=== PATIENT | male | born 1965 | race Caucasian/White ===

== ENCOUNTER 2017-03-04 13:25 | Emergency (ER) | payer OTHER ==
[~2017-03-04] VITALS: Ht 188 cm; Wt 155.6 kg
[2017-03-04] MEDS ORDERED: TRAM-42 PO (14:23)
--- NOTE | 2017-03-04 14:24 | ED Lower Extremity ---
General Chief Complaint: Lower Extremity Stated Complaint: R KNEE INJ Source: patient Exam Limitations: no limitations History of Present Illness Time seen by provider: 14:21 Initial Comments To ER with pain to the right knee. This began 3-4 days ago when he was pushing a riding lawnmower that wouldn't start. He did not feel any popping sensation. That evening he had some pain behind the knee. Now has pain to the entire knee. Left knee has been replaced. He has been weightbearing since the event with only minimal increase in pain but his baseline pain is not responding to ibuprofen. Onset: last week Severity: moderate Pain/Injury Location: left knee Method of Injury: twisted Modifying Factors: Improves With Movement Constitutional: see HPI EENTM: see HPI Respiratory: no symptoms reported Cardiovascular: no symptoms reported Genitourinary: no symptoms reported Musculoskeletal: see HPI Past Zvfmvwp-Zxerbf-Emuscq Hx Patient Social History Recent Foreign Travel: No Contact w/Someone Who Travel: No Physical Exam Vital Signs Capillary Refill : General Appearance: WD/WN, no apparent distress HEENT: PERRL/EOMI, normal ENT inspection Neck: non-tender, full range of motion Respiratory: no respiratory distress, no accessory muscle use Gastrointestinal: non tender, soft Hips: bilateral hip non-tender, bilateral hip normal inspection, bilateral hip normal range of motion Legs: bilateral leg non-tender, bilateral leg normal inspection, bilateral leg normal range of motion Knees: bilateral knee non-tender, bilateral knee normal inspection, bilateral knee normal range of motion Ankles: bilateral ankle non-tender, bilateral ankle normal inspection, bilateral ankle normal range of motion Neurologic/Psychiatric: alert, normal mood/affect, oriented x 3 Departure Impression Impression: Primary Impression: Internal derangement of right knee Disposition: 01 HOME, SELF-CARE Condition: Stable Departure-Patient Inst. Decision time for Depature: 14:22 Referrals: YENNY DUFFY (PCP) Primary Care Physician AUTUMN SAPP MD Patient Instructions: Internal Derangement of the Knee Add. Discharge Instructions: 1. Rest, ice, crutches as needed. Scripts Tramadol HCl (Ultram) 50 Mg Tablet 50 MG PO Q6H Y for PAIN-MODERATE TO SEVERE, #30 TAB Prov: GAURAV FREDERICK APRN 03/04/17 Work/School Note: Work Release Form Date Seen in the Emergency Department: Mar 04, 2017 Return to Work: Mar 09, 2017 GAURAV FREDERICK APRN Mar 04, 2017 14:24
[2017-03-04 14:33] VITALS: BP 163/98
[2017-03-04] MEDS ORDERED: AMLODIPINE 5 MG (14:39)
[2017-03-04] MEDS ORDERED: MOBIC 15 MG (14:39)
[2017-03-04] MEDS ORDERED: LISINOPRIL HYDROCHLOROTHIAZIDE (14:39)
== END 2017-03-04 14:32 | disposition home or self-care (01) ==
LOC: EDUNIT# 13:25 → ER 13:28
DX: M23.91 Unspecified internal derangement of right knee (principal); Z96.652 Presence of left artificial knee joint
CPT/HCPCS: 99283

== ENCOUNTER 2019-03-13 10:07 | Outpatient (CLI) | payer OTHER ==
[~2019-03-13] VITALS: Ht 187.9 cm; Wt 169.1 kg
[~2019-03-13 10:07] MED LIST: AMLODIPINE 5 MG; LISINOPRIL HYDROCHLOROTHIAZIDE; MOBIC 15 MG; TRAM-42 PO
[2019-03-13 10:39] VITALS: BP 146/78
[2019-03-13 11:09] LABS: CALCIUM 9.8 MG/DL (8.5-10.1); CREATININE SERUM 1.42 MG/DL (0.60-1.30); POTASSIUM 3.9 MMOL/L (3.6-5.0)
[2019-03-13] MEDS ORDERED: LOSA100T57 PO (12:39)
[2019-03-13] MEDS ORDERED: CARV25TA PO (12:39)
[2019-03-13] MEDS ORDERED: AMLO10TA7 PO (12:39)
[2019-03-13] MEDS ORDERED: FURO40TA4 PO (12:39)
[2019-03-13] MEDS ORDERED: POTA-51 PO (12:39)
[2019-03-13] MEDS ORDERED: ALLO100T PO (12:39)
== END 2019-03-13 10:55 | disposition home or self-care (01) ==
LOC: PREOP 10:07
PROVIDERS: ATTEND Orthopaedic Surgery
DX: Z01.812 Encounter for preprocedural laboratory examination (principal); M93.262 Osteochondritis dissecans, left knee
CPT/HCPCS: 36415; 80048; 87081

== ENCOUNTER 2019-03-19 08:17 | Day surgery (SDC) | payer OTHER ==
--- NOTE | 2019-03-10 08:16 | HISTORY AND PHYSICAL ---
DATE OF SERVICE: ADMISSION HISTORY AND PHYSICAL This will be for outpatient surgery on 03/19/2019 for left knee arthroscopy with microfracture. HISTORY: The patient is a 54-year-old gentleman who has previously undergone left knee arthroscopy but has an osteochondral defect noted in his medial femoral condyle. He has undergone treatment with injections, physical therapy, activity modifications, and anti-inflammatories without relief. Radiographs reveal an osteochondral defect of his medial femoral condyle. Due to functional impairment and failure to improve with conservative measures, the patient elected to proceed with surgical intervention. REVIEW OF SYSTEMS: No chest pain, no shortness of breath, no dysuria. PAST MEDICAL HISTORY: Chronic kidney disease, hypertension. PAST SURGICAL HISTORY: Left knee. FAMILY HISTORY: Significant for ischemic heart disease. PRIMARY CARE PROVIDER: Dr. Addison. MEDICATIONS: Amlodipine, allopurinol, losartan, carvedilol, furosemide, potassium, calcium. ALLERGIES: No known drug allergies. SOCIAL HISTORY: The patient denies alcohol, tobacco use. PHYSICAL EXAMINATION: GENERAL: The patient is well developed, well nourished, in no acute distress. HEENT: Normocephalic, atraumatic. Pupils are equal, round and reactive to light. Oropharynx is clear. NECK: Supple, no lymphadenopathy. LUNGS: Clear to auscultation bilaterally. HEART: Regular rate and rhythm. ABDOMEN: Soft, nontender, nondistended. EXTREMITIES: Left knee demonstrates moderate effusion. He is tender along the medial femoral condyle and has pain medially with Randy's. Range of motion is 0/0/135. There is no varus valgus laxity. Negative anterior and posterior drawer. IMPRESSION: Left knee osteochondral defect, unresponsive to conservative measures. PLAN: Left knee arthroscopy with microfracture with medial femoral condyle. The risks, benefits, options, ramifications and recovery have been discussed at length with the patient. He understands and wishes to proceed. Job ID: [id number] DocumentID: [id number] Dictated Date: 03/06/2019 15:03:27 Manager Ed Date: 03/06/2019 15:50:26 Dictated By: AUTUMN SAPP MD
[2019-03-19] VITALS (11 sets, daily range): BP systolic 113–161; BP diastolic 61–97
[~2019-03-19] VITALS: Ht 187.9 cm; Wt 169.1 kg
[~2019-03-19 08:17] MED LIST changes: +ALLO100T PO; +AMLO10TA7 PO; +CARV25TA PO; +FURO40TA4 PO; +LOSA100T57 PO; +POTA-51 PO
[2019-03-19] MEDS ORDERED: LACTATED RINGERS 1,000 ML IV PRN (08:43)
[2019-03-19] MEDS ORDERED: ceFAZolin INJECTION 1,000 MG in WATER (STERILE) FOR INJECTION 10 ML IV ONE (08:45)
--- NOTE | 2019-03-19 09:11 | Progress Note-Pre Operative ---
Pre-Operative Progress Note H&P Reviewed The H&P was reviewed, patient examined and no changes noted. Date Seen by Provider: Mar 19, 2019 Time Seen by Provider: 09:11 Date H&P Reviewed: Mar 19, 2019 Time H&P Reviewed: 09:11 Pre-Operative Diagnosis: left knee osteochondritis dessistuarts AUTUMN SAPP MD Mar 19, 2019 09:11
--- NOTE | 2019-03-19 09:12 | Progress Note-Post Operative ---
Post-Operative Progess Note Surgeon (s)/Tower Helper (s) Surgeon AUTUMN SAPP MD Tower Helper: Elkin Kaur Pre-Operative Diagnosis left knee osteochondritis dessicans Post-Operative Diagnosis left knee osteochondritis dessicans of the medial femoral condyle, medial meniscus tear and chonromalacia of the patellas Procedure & Operative Findings Date of Procedure 03/19/19 Procedure Performed/Findings left knee arthroscopic microfracture of the medial femoral condyle, partial me dial meniscectomy and chondroplasty of the patella Anesthesia Type GETA Estimated Blood Loss Estimated blood loss (mL): minimal Specimens/Packing Specimens Removed none Packing: none AUTUMN SAPP MD Mar 19, 2019 09:12
[2019-03-19] MEDS ORDERED: morphine PF (DURAMORPH) 10 MG/10 ML AMP ONE (09:13)
[2019-03-19] MEDS ORDERED: BUPIVACAINE 0.25% 30 ML (SENSORCAINE) VIAL ONE (09:14)
[2019-03-19] MEDS ORDERED: HYDROcodone/APAP 7.5 MG/325 MG (LORTAB, LORCET PLUS) TABLET PO PRN (09:15)
[2019-03-19] MEDS ORDERED: LIDOCAINE PF 2% 5 ML (XYLOCAINE) VIAL ONE (09:37)
[2019-03-19] MEDS ORDERED: fentaNYL INJECTION 100 MCG/2 ML AMP ONE ×2 (09:37→10:22)
[2019-03-19] MEDS ORDERED: proPOfol 200 MG/20 ML (DIPRIVAN) VIAL IV ONE (09:37)
[2019-03-19] MEDS ORDERED: SEVOFLURANE (ULTANE) 15 ML INHAL SOLN ONE ×2 (09:37→10:34)
[2019-03-19] MEDS ORDERED: MIDAZOLAM 2 MG/2 ML (VERSED) VIAL ONE (09:37)
[2019-03-19] MEDS ORDERED: fentaNYL INJECTION 100 MCG/2 ML AMP IVP ONE (10:30)
[2019-03-19] MEDS ORDERED: MEPERIDINE (DEMEROL) INJ 50 MG/ML IVP ONE (10:30)
[2019-03-19] MEDS ORDERED: ONDANSETRON 4 MG/2 ML (SDV) Z0FRAN IVP PRN (10:30)
[2019-03-19] MEDS ORDERED: morphine INJ 10 MG/ML 1ML (SYR OR VIAL) IVP ONE (10:30)
[2019-03-19] MEDS ORDERED: ONDANSETRON 4 MG/2 ML (SDV) Z0FRAN IVP ONE (12:00)
[2019-03-19] MEDS ORDERED: HYDR-3816 PO (12:59)
--- NOTE | 2019-03-19 13:40 | Physical Therapy Ortho Eval ---
PT Orthopedic Evaluation Type of Surgery Knee Scope Prior Level of Function Current Living Status: Alone (has support from friends) Locomotion (Upon Admit): Independent Established Durable Medical Eq: Front Wheeled Walker, Straight Cane Subjective Subjective Agrees to PT. Reports he is somewhat nauseated. Entry Into Home: Stairs With Railing Steps Accessories: Railing Present Motor Control Motor Control: Motor Control WNL ROM ROM: WFL, except focal deficit (right knee decreased knee flexion) Strength Strength: WFL Transfer Transfers (B, C, W/C) (FIM): 4 (6 post eval / treat) Gait Gait Assistive Device: FWW Right Lower Extremity: Right Weight Bearing Status RLE: Weight Bearing/Tolerated Left Lower Extremity: Left Weight Bearing Status LLE: Full Weight Bearing Gait (FIM): 4 (6 post eval) Distance (FIM): 6=896-30 ft Gait Level of Assist: 4 (6 post eval) Summary/Comments pt is safe with gait on level surfaces as well as up/down a step with FWW. Treatment Rendered Treatment: Therapeutic Exercises, Gait Train, Step Train Exercise Instruction: Quad Sets, Straight Leg Raise, Heel Slides Assessment/Goals Goal Time Frame: 1 Visit Understands HEP: Yes Safe Ambulation: Yes Plan Treatment Plan: Discharge PT/Family Agrees to Plan: Yes Time Time In: 1240 Time Out: 1300 Total Billed Treatment Time: 20 Billed Treatment Time visit EVL 20 HEMANT DE LEON PT Mar 19, 2019 13:40
--- NOTE | 2019-03-19 14:11 | Anesthesia-General Post-Op ---
General Patient Condition Mental Status/LOC: Same as Preop Cardiovascular: Satisfactory Nausea/Vomiting: Absent Respiratory: Satisfactory Pain: Controlled Complications: Absent Post Op Complications Complications None Follow Up Care/Instructions Patient Instructions None needed. Anesthesia/Patient Condition Patient Condition Patient is doing well, no complaints, stable vital signs, no apparent adverse anesthesia problems. No complications reported per nursing. BRI PEREZ CRNA Mar 19, 2019 14:11
--- NOTE | 2019-03-19 19:03 | OPERATIVE REPORT ---
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 POSTOPERATIVE DIAGNOSES: 1. 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 2. Left knee medial meniscus tear. 3. Left knee chondromalacia of the patella. PROCEDURES: 1. Left knee arthroscopic microfracture of the medial femoral condyle. 2. Left knee arthroscopic partial medial meniscectomy. 3. Left knee arthroscopic chondroplasty of the patella. SURGEON: Pablo Sapp MD PHYSIOTHERAPY AIDE: Elkin Kaur, who assisted throughout the procedure and closed the incisions. ANESTHESIA: General endotracheal by Elkin Hendrix CRNA. TOURNIQUET TIME: Not applicable. ESTIMATED BLOOD LOSS: Minimal. DRAINS: None. COMPLICATIONS: None. POSTOPERATIVE PLAN: Routine arthroscopy protocol. The patient was transferred to the recovery room awake and in stable condition. STATEMENT OF MEDICAL NECESSITY: The patient is a 54-year-old gentleman with left knee pain, catching, locking and swelling. He had undergone arthroscopy in the past. He had also undergone treatment with injections, physical therapy, anti-inflammatories and rest without relief. Radiographs revealed an osteochondritis dissecans lesion of his medial femoral condyle and due to functional impairment and failure to improve with conservative measures, the patient elected to proceed with surgical intervention. Examination under anesthesia revealed range of motion of 0/0/125 with negative Alex, negative anterior and posterior drawer. No varus valgus laxity, negative pivot shift. ARTHROSCOPIC FINDINGS: The patella demonstrated grade II chondral flaps inferiorly in a 10 x 10 area. Trochlea demonstrated diffuse grade II chondral softening with no unstable chondral flaps. Medial and lateral gutters were clear. The lateral compartment demonstrated no meniscal or chondral pathology. The ACL and PCL were intact. The medial compartment demonstrated a full thickness osteochondritis lesion, which was hinged anteriorly approximately 12 x 12 mm in size. The posterior horn of the medial meniscus demonstrated a radial tear involving approximately 20% posterior horn. PROCEDURE: After risks and benefits of procedure were discussed and questions were answered, an informed consent was signed and placed on chart, the operative site was confirmed in the preoperative holding area initialed by the surgeon. The patient was transferred to the operating room. After adequate levels of general endotracheal anesthetic were obtained, a timeout was called, confirming the operative site. Examination under anesthesia was performed with above findings noted. The left lower extremity was prepped and draped in the usual sterile fashion. The knee joint was injected with 60 mL of fluid and standard inferior lateral portals placed with the arthroscope under direct visualization, inferior medial portal was created. The menisci and cruciates carefully probed with the above findings noted. The unstable chondral flaps on the patella were debrided with shaver back to a stable edge. Scope was redirected into the medial compartment and unstable medial meniscus tear was debrided with shaver back to a stable edge. The osteochondritis lesion was removed and this was a well-shouldered lesion. This was debrided back to a stable edge and a microfracture was performed with a curved awl with good blood return noted. The knee was copiously irrigated. Portal sites were closed with 4-0 nylon in simple interrupted fashion. Knee was injected with Duramorph. Port sites were infiltrated with plain Marcaine. A soft dressing was applied. The patient was transferred to the recovery room awake and in stable condition. Job ID: [id number] DocumentID: [id number] Dictated Date: 03/19/2019 10:47:48 Atmospheric Sciences Professor Date: 03/19/2019 19:02:11 Dictated By: PABLO SAPP MD
== END 2019-03-19 13:20 | disposition home or self-care (01) ==
LOC: SDC 08:17
PROVIDERS: ATTEND Orthopaedic Surgery
DX: S83.242A Other tear of medial meniscus, current injury, left knee, initial encounter (principal); M93.262 Osteochondritis dissecans, left knee; M22.42 Chondromalacia patellae, left knee; G47.33 Obstructive sleep apnea (adult) (pediatric); I12.9 Hypertensive chronic kidney disease with stage 1 through stage 4 chronic kidney disease, or unspecified chronic kidney disease; N18.9 Chronic kidney disease, unspecified; E66.01 Morbid (severe) obesity due to excess calories; Z68.42 Body mass index [BMI] 45.0-49.9, adult; Z79.899 Other long term (current) drug therapy

== ENCOUNTER 2021-02-21 10:06 | Emergency (ER) | payer OTHER ==
[~2021-02-21] VITALS: Ht 187 cm; Wt 188.2 kg
[~2021-02-21 10:06] MED LIST changes: +AMLO-251 PO; -AMLO10TA7 PO; +HYDR-34 PO
[2021-02-21] MEDS ORDERED: LIDOCAINE/EPI 1%-1:100,000 (XYLOCAINE) 20ML ONE (10:56)
[2021-02-21] MEDS ORDERED: LIDOCAINE/EPI 1%-1:100,000 (XYLOCAINE) 20ML INJ ONE (11:00)
[2021-02-21] MEDS ORDERED: DOXYCYCLINE 100 MG (VIBRAMYCIN) TABLET PO SCH (11:00)
[2021-02-21] MEDS ORDERED: ORPHENADRINE 60 MG/2 ML (NORFLEX) AMP (ED ONLY) IM ONE (11:00)
[2021-02-21] MEDS ORDERED: KETOROLAC 60 MG/2 ML VIAL IM ONE (11:00)
--- NOTE | 2021-02-21 11:14 | ED Back Pain ---
General Chief Complaint: Back Problems Stated Complaint: LOWER BACK PAIN Nursing Triage Note: PT PRESENTS TO ED WITH COMPLAINTS OF LOW BACK/TAIL BONE PAIN STARTING LAST NIGHT. PT DENIES ANY RECENT INJURY. Source of Information: Patient Exam Limitations: No Limitations (GAURAV FREDERICK APRN) History of Present Illness Date Seen by Provider: Feb 21, 2021 Time Seen by Provider: 10:50 Initial Comments To ER with low back/tailbone pain since last night no known injury though he was bouncing around in a tractor for a couple of hours. No fevers or chills. No history of this. Location: Coccyx, Lumbar Spine Timing/Duration: 1-2 Days Severity: Moderate Pain/Injury Location: Back Associated Symptoms: denies symptoms (GAURAV FREDERICK APRN) Allergies and Home Medications Allergies Coded Allergies: No Known Drug Allergies (Unverified , 03/04/17) Patient Home Medication List Home Medication List Reviewed: Yes (GAURAV FREDERICK APRN) Allopurinol (Allopurinol) 100 Mg Tablet, 100 MG PO BID, (Reported) Entered as Reported by: CHAN SMITH on 03/13/19 1239 Amlodipine Besylate (Amlodipine Besylate) 10 Mg Tablet, 10 MG PO DAILY, (Reported) Entered as Reported by: CHAN SMITH on 03/13/19 1239 Carvedilol (Carvedilol) 25 Mg Tablet, 25 MG PO BID, (Reported) Entered as Reported by: CHAN SMITH on 03/13/19 1239 Doxycycline Hyclate (Doxycycline Hyclate) 100 Mg Tablet, 100 MG PO BID Prescribed by: GAURAV FREDERICK on 02/21/21 1115 Furosemide (Furosemide) 40 Mg Tablet, 40 MG PO DAILY, (Reported) Entered as Reported by: CHAN SMITH on 03/13/19 1239 Hydrocodone Bit/Acetaminophen (HYDROcodone/APAP 7.5/325 TAB) 1 Each Tablet, 1 TAB PO Q4H Prescribed by: CORRINA LINDSEY on 03/19/19 1259 Hydrocodone/Acetaminophen (Hydrocodone-Acetamin 5-325 mg) 1 Each Tablet, 1 TAB PO Q4H PRN for PAIN-MODERATE (5-7) Prescribed by: GAURAV FREDERICK on 02/21/21 1115 Losartan Potassium (Losartan Potassium) 100 Mg Tablet, 100 MG PO DAILY, (Reported) Entered as Reported by: CHAN SMITH on 03/13/19 1239 Metronidazole (Metronidazole) 500 Mg Tablet, 500 MG PO TID Prescribed by: GAURAV FREDERICK on 02/21/21 1115 Potassium Chloride (Potassium Chloride) 20 Meq Tablet.er, 20 MEQ PO DAILY, (Reported) Entered as Reported by: CHAN SMITH on 03/13/19 1239 Review of Systems Constitutional: see HPI EENTM: see HPI Respiratory: no symptoms reported Cardiovascular: no symptoms reported Genitourinary: no symptoms reported Musculoskeletal: no symptoms reported Skin: see HPI Psychiatric/Neurological: No Symptoms Reported (GAURAV FREDERICK APRN) Past Sicqxib-Eealqs-Lrdcrj Hx Patient Social History Tobacco Use?: No Substance use?: No Alcohol Use?: No Pt feels they are or have been: No (GAURAV FREDERICK APRN) Immunizations Up To Date First/Initial COVID19 Vaccinat: YES Second COVID19 Vaccination Aki: YES (GAURAV FREDERICK APRN) Seasonal Allergies Seasonal Allergies: Yes (GAURAV FREDERICK APRN) Past Medical History Surgery/Hospitalization HX: L KNEE, HTN, GOUT Surgeries: Yes (left knee scope) Respiratory: Yes Sleep Apnea Currently Using CPAP: Yes Cardiac: Yes Hypertension Neurological: No Genitourinary: No Gastrointestinal: No Musculoskeletal: Yes (left knee) Arthritis Endocrine: No HEENT: No Cancer: No Psychosocial: No Integumentary: No Blood Disorders: No (GAURAV FREDERICK APRN) Physical Exam Vital Signs Vital Signs - First Documented 02/21/21 10:36 Temp 36.1 Pulse 78 Resp 16 B/P (MAP) 176/94 (121) Pulse Ox 97 (ISMAEL KAYE MD) Vital Signs Capillary Refill : Less Than 3 Seconds (GAURAV FREDERICK APRN) Height, Weight, BMI Height: 6'2.00" Weight: 343lbs. oz. 155.638593ji; 53.00 BMI Method:Stated General Appearance: No Apparent Distress, WD/WN, Obese HEENT: PERRL/EOMI, TMs Normal Neck: Full Range of Motion, Normal Inspection Cardiovascular: Regular Rate, Rhythm, Normal Peripheral Pulses Respiratory: No Accessory Muscle Use, No Respiratory Distress Gastrointestinal: Normal Bowel Sounds, Non Tender, Soft Extremity: Normal Capillary Refill, Normal Inspection Neurologic/Psychiatric: Alert, Oriented x3 Skin: Normal Color, Warm/Dry Lymphatic: Other (Skin of the low back appears normal. When spreading the skin to evaluate the superior aspect of the gluteal cleft there is indurated fluctuant tissue, bedside ultrasound shows a fluid collection. This was anesthetized with 1 mL of 1% lidocaine with epinephrine, incision made with 11 blade scalpel, moderate amount of foul-smelling purulent material expressed. There are no findings of cellulitis) (GAURAV FREDERICK APRN) Progress/Results/Core Measures Results/Orders Vital Signs/I&O 02/21/21 02/21/21 10:36 11:53 Temp 36.1 36.1 Pulse 78 80 Resp 16 16 B/P (MAP) 176/94 (121) 174/90 Pulse Ox 97 98 (ISMAEL KAYE MD) Blood Pressure Mean: 121 Departure Impression Primary Impression: Pilonidal abscess Disposition: HOME, SELF-CARE Condition: Stable Departure-Patient Inst. Decision time for Depature: 11:12 (GAURAV FREDERICK APRN) Referrals: LOUIE HATCH MD (PCP) Primary Care Physician Patient Instructions: Skin Abscess Add. Discharge Instructions: 1. This will continue to drain over the next few days, this is totally fine, change the gauze as needed to collect the drainage. Take the antibiotics as directed. Do not take alcohol while on the antibiotics. Pain medication as directed. Return to ER for any concerns such as increasing pain, fevers, or swelling to this area. It may need different antibiotics or re-lanced. All discharge instructions reviewed with patient and/or family. Voiced understanding. Scripts Hydrocodone/Acetaminophen (Hydrocodone-Acetamin 5-325 mg) 1 Each Tablet 1 TAB PO Q4H PRN for PAIN-MODERATE (5-7), #10 TAB Prov: GAURAV FREDERICK APRN 02/21/21 Metronidazole (Metronidazole) 500 Mg Tablet 500 MG PO TID, #21 TAB 0 Refills Prov: GAURAV FREDERICK APRN 02/21/21 Doxycycline Hyclate (Doxycycline Hyclate) 100 Mg Tablet 100 MG PO BID, #14 TAB 0 Refills Prov: GAURAV FREDERICK APRN 02/21/21 Work/School Note: Work Release Form Date Seen in the Emergency Department: Feb 21, 2021 Return to Work: Feb 27, 2021 ATTENDING PHYSICIAN NOTE: I was physically present as attending physician in the emergency department during the care of this patient, but I was not directly involved in the decision making or delivery of care for this patient. (ISMAEL KAYE MD) GAURAV FREDERICK APRN Feb 21, 2021 11:14 ISMAEL KAYE MD Feb 21, 2021 18:24
[2021-02-21] MEDS ORDERED: METR-145 PO (11:15)
[2021-02-21] MEDS ORDERED: DOXY100T2 PO (11:15)
[2021-02-21] MEDS ORDERED: ACHD5005 PO (11:15)
--- NOTE | 2021-02-21 11:37 | Diagnostic Imaging Report ---
EXAMINATION: Sacrum and coccyx radiographs, 3 views. COMPARISON: None. HISTORY: 56-year-old male, coccygeal pain. No known recent injury. FINDINGS: There is no identified cortical or aggressive bone destruction. There is no radiographically apparent displaced fracture. There is no identified radiopaque foreign body. There are mild disc degenerative changes at L4-L5 and L5-S1 with endplate degenerative changes and relatively well preserved disc heights. The sacroiliac joints are grossly unremarkable in appearance bilaterally. IMPRESSION: 1. Mild disc degenerative changes at L4-L5 and L5-S1. 2. Otherwise, unremarkable radiographs of the sacrum and coccyx. Dictated by: Dictated on workstation # [id number]
[2021-02-21 11:53] VITALS: BP 174/90
== END 2021-02-21 11:53 | disposition home or self-care (01) ==
LOC: EDUNIT# 10:06 → ER 10:08
DX: L05.01 Pilonidal cyst with abscess (principal)
CPT/HCPCS: 72220; 87070; 87077; 87186; 87205

== ENCOUNTER 2022-05-16 11:01 | Outpatient (CLI) | payer OTHER ==
[~2022-05-16] VITALS: Ht 188 cm; Wt 189.6 kg
[~2022-05-16 11:01] MED LIST changes: +ACHD5005 PO; +DOXY100T2 PO; +METR-145 PO
[2022-05-17] MEDS ORDERED: ERGO1250 PO (09:13)
[2022-05-17] MEDS ORDERED: LOSA50TA63 PO (09:13)
[2022-05-17] MEDS ORDERED: FURO20TA4 PO (09:13)
== END 2022-05-17 09:17 ==
LOC: PREOP 11:01
PROVIDERS: ATTEND Surgery
DX: Z01.818 Encounter for other preprocedural examination (principal); Z12.11 Encounter for screening for malignant neoplasm of colon

== ENCOUNTER 2022-05-21 09:16 | Inpatient (IN) | payer OTHER ==
[~2022-05-21] VITALS: Ht 187 cm; Wt 184.7 kg
[~2022-05-21 09:16] MED LIST changes: +ERGO1250 PO; +FURO20TA4 PO; +LOSA50TA63 PO
[2022-05-21 10:10] LABS: ALBUMIN 4.1 GM/DL (3.2-4.5); POTASSIUM 4.3 MMOL/L (3.6-5.0)
[2022-05-21 10:12] LABS: TOTAL PROTEIN 7.1 GM/DL (6.4-8.2)
[2022-05-21 10:14] LABS: BILIRUBIN,TOTAL 1.7 MG/DL (0.1-1.0)
[2022-05-21] MEDS ORDERED: hydrALAZINE (APESOLINE) 20 MG/ML VIAL IV ONE ×2 (10:15→11:30)
[2022-05-21 10:16] LABS: CREATININE SERUM 1.85 MG/DL (0.60-1.30)
[2022-05-21 10:19] LABS: MAGNESIUM 2.1 MG/DL (1.6-2.4)
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
--- NOTE | 2022-05-21 10:29 | Diagnostic Imaging Report ---
INDICATION: Head injury with headache and high blood pressure. Time of Exam: 10:31 AM No prior studies are available for comparison. FINDINGS: The heart size is normal. The pulmonary vascularity is unremarkable. The lungs are clear. No infiltrate, effusion or pneumothorax is detected. IMPRESSION: No acute cardiopulmonary process is detected. Dictated by: Dictated on workstation # [id number]
--- NOTE | 2022-05-21 10:30 | Diagnostic Imaging Report ---
PROCEDURE: CT head without contrast. TECHNIQUE: Multiple contiguous axial images were obtained through the brain without the use of intravenous contrast. Auto Exposure Controls were utilized during the CT exam to meet ALARA standards for radiation dose reduction. INDICATION: Headache. No prior studies are available for comparison. The ventricles and sulci are within normal limits. No sulcal effacement or midline shift is identified. No acute intra-axial or extra-axial hemorrhage is detected. There appears to be low attenuation in the periventricular regions consistent with chronic microvascular ischemia. Mucous retention cyst or polyp right maxillary sinus is noted. IMPRESSION: Chronic changes. No acute intracranial process is detected. Dictated by: Dictated on workstation # [id number]
[2022-05-21 11:13] LABS: BASOPHILS % (AUTO) 0 % (0-10); EOSINOPHILS % (AUTO) 0 % (0-10); MEAN CORPUSCULAR HGB CONC 35 g/dL (32-36); MEAN PLATELET VOLUME 11.8 fL (9.0-12.2)
[2022-05-21 11:15] LABS: HEMATOCRIT 37 % (40-54); HEMOGLOBIN 12.9 g/dL (13.3-17.7); LYMPHOCYTES # (AUTO) 1.9 10^3/uL (1.0-4.0); LYMPHOCYTES % (AUTO) 37 % (12-44); MEAN CORPUSCULAR HEMOGLOBIN 30 pg (25-34); MEAN CORPUSCULAR VOLUME 85 fL (80-99); MONOCYTES # (AUTO) 0.9 10^3/uL (0.0-1.0); MONOCYTES % (AUTO) 18 % (0-12); NEUTROPHILS # (AUTO) 2.1 10^3/uL (1.8-7.8); NEUTROPHILS % (AUTO) 40 % (42-75); PLATELET COUNT 108 10^3/uL (130-400); WHITE BLOOD COUNT 5.2 10^3/uL (4.3-11.0)
[2022-05-21] MEDS ORDERED: NITROGLYCERIN 2% OINT 1 GM UNIT DOSE PACKET TOP ONE (11:30)
[2022-05-21 11:36] LABS: BILIRUBIN,URINE NEGATIVE (NEGATIVE); CLARITY,URINE CLEAR; COLOR,URINE YELLOW; GLUCOSE, URINE (UA) NEGATIVE (NEGATIVE); KETONES,URINE NEGATIVE (NEGATIVE); LEUKOCYTE ESTERASE ,URINE NEGATIVE (NEGATIVE); NITRITE,URINE NEGATIVE (NEGATIVE); PROTEIN,URINE 3+ (NEGATIVE)
[2022-05-21 11:46] LABS: BACTERIA,URINE NEGATIVE /HPF; HYALINE CASTS, URINE RARE /LPF
[2022-05-21] MEDS ORDERED: LABETALOL HCL 20 MG/4 ML VIAL IV ONE (12:30)
[2022-05-21] MEDS ORDERED: amLODIPine 5 MG (NORVASC) TAB PO ONE (12:30)
[2022-05-21] MEDS ORDERED: fentaNYL INJ 100 MCG/2 ML AMP IVP ONE (14:00)
[2022-05-21] MEDS ORDERED: AMLO-251 PO (14:30)
[2022-05-21] MEDS ORDERED: NITROPRUSSIDE INJECTION 50 MG in D5W IV SOLUTION (EXCEL) 250 ML IV SCH (14:45)
[2022-05-21] MEDS ORDERED: ONDANSETRON 4 MG/2 ML (SDV) Z0FRAN IVP ONE (14:45)
[2022-05-21] MEDS ORDERED: morphine INJ 4 MG/ML 1 ML (VIAL/SYRINGE) IV PRN (16:00)
[2022-05-21] MEDS: NITROPRUSSIDE INJECTION 50 MG in D5W IV SOLUTION (EXCEL) 250 ML IV SCH (16:02)
[2022-05-21] MEDS ORDERED: ALPRAZolam 0.5 MG (XANAX) TAB PO PRN (16:15)
--- NOTE | 2022-05-21 17:53 | Tele-ICU Consult ---
History of Present Illness History of Present Illness Date Seen by Provider: May 21, 2022 Time Seen by Provider: 16:18 History of Present Illness (Tele-ICU Physician , consultation as per request of PCP Service provided via interactive audio and video telecommunications E-CARE system to a patient admitted to ICU bed in [facility] [place]. Available chart/ vitals / labs / Images reviewed H&P is from ER notes Patient's information available about PMH, Shx, Fhx allergy reviewed inEMR. ROS as per chart and RN report Now in ICU, hemodynamically stable Video assessment done using teleICU camera, rest of exam as per RN Discussed with RN. Hospital course: (05/21) 57y/o M admitted with unctontrolled hypertension. Nipride gtt. A/P HTN urgency/ with hypertensive WHALEN and DARLIN - h/p HTN - losartan was increased from 50 to 100 about 1 week ago - compliant - on presentation BP 180/111( MAP 137 - BP already decreased 10- 20% in ER using nitroprusside gtt - NEED TO MONITOR CLOSELY GIVEN RENAL FUNCTION -will plan 20% idrop n next 16 H ( next few hours target BP of <180/<120 mmHg , by tomorrow goal and <160/<110 mmHg - add trop to blood in lab - no EKG changes C/O HEADACHE X 6 WEEKS - CTH - no acute changes DARLIN due to above? / CKD - monitor for now COLEMAN - cont home cpap Anxiety - xanax prn Low PLT - etiology not clear now , monitor , no heparin product today Lines : prop , (Central Line Necessity Reviewed) Mac: void OG: Nutrition: po Analgesia: Anxiety/ delirium VTE Prophylaxis: scd Stress Ulcer Prophylaxis: na Plans in collaboration with bedside consultants and IM MDs. Discussed with RN to reach out if any questions or concerns A total of 31 minutes of critical care time was devoted to this patient today, required to treat and/or prevent further deterioration of critical care condition ( as above ) . I am remotely monitoring this patient from another state. I am unable to do the bedside exam, and history/physical and pertinent information is taken from other notes in the computer and bedside staff. . Allergies and Home Medications Allergies Coded Allergies: No Known Drug Allergies (Unverified , 03/04/17) Home Medications Allopurinol 100 Mg Tablet, 100 MG PO BID, (Reported) Amlodipine Besylate 10 Mg Tablet, 10 MG PO DAILY, (Reported) Amlodipine Besylate 10 Mg Tablet, 10 MG PO DAILY Prescribed by: ORLANDO PARRISH on 05/21/22 1430 Carvedilol 25 Mg Tablet, 25 MG PO BID, (Reported) Ergocalciferol (Vitamin D2) 1,250 Mcg (21550 Unit) Capsule, 1,250 MCG PO DAILY, (Reported) Furosemide 20 Mg Tablet, 20 MG PO DAILY, (Reported) Losartan Potassium 50 Mg Tablet, 50 MG PO DAILY, (Reported) Potassium Chloride 20 Meq Tablet.er, 20 MEQ PO DAILY, (Reported) Past Medical/Social/Family Hx Patient Social History Tobacco Use?: No Use of E-Cig and/or Vaping dev: No Substance use?: No Alcohol Use?: No Pt stated abuse/neglect: No Immunizations Up To Date Influenza Vaccine Up-to-Date: Yes; Up-to-Date First/Initial COVID19 Vaccinat: YES Second COVID19 Vaccination Aki: YES Current Status Advance Directives: No Communicates: Verbally Primary Language: Bulgarian Preferred Spoken Language: Bulgarian Is interpretation needed?: No Sensory deficits: Vision impairment Implanted or Applied Medical D: CPAP Review of Systems Constitutional: see HPI Focused Exam Possible Source: Other Height, Weight, BMI Height: 6'2.00" Weight: 343lbs. oz. 155.654206ve; 52.90 BMI Method:Stated Exam Exam Patient acknowledged, consented, and participated in this virtual visit which was conducted using real time audio/video Vital Signs Date Time Temp Pulse Resp B/P (MAP) Pulse Ox O2 Delivery O2 Flow Rate FiO2 05/21/22 17:00 81 9 156/90 (109) 93 Room Air 05/21/22 16:28 92 20 159/103 05/21/22 16:24 05/21/22 16:18 80 20 154/96 05/21/22 16:00 78 23 199/106 (141) 96 Room Air 05/21/22 16:00 36.5 05/21/22 15:59 73 20 189/117 05/21/22 15:42 36.8 67 18 188/91 98 Room Air 05/21/22 15:30 96 Room Air 05/21/22 15:06 67 18 188/91 05/21/22 13:10 63 20 174/97 (122) 98 Room Air 05/21/22 11:57 80 20 160/93 (115) 98 Room Air 05/21/22 10:59 70 18 178/100 (126) 99 Room Air 05/21/22 09:24 36.8 70 18 189/111 (137) 97 Room Air Height & Weight Height: 6'2.00" Weight: 343lbs. oz. 155.806894mq; 52.90 BMI Method:Stated General Appearance: Other Capillary Refill: Less Than 3 Seconds Results Lab Laboratory Tests 05/21/22 09:55 05/21/22 11:06 Assessment/Plan Assessment/Plan 1 KAT MINA MD May 21, 2022 17:53
[2022-05-21] MEDS ORDERED: LOSA100T57 PO (17:55)
[2022-05-21] MEDS ORDERED: NS IV 500 ML 500 ML IV PRN (18:45)
[2022-05-21 18:47] LABS: POTASSIUM 3.7 MMOL/L (3.6-5.0)
[2022-05-21 18:48] LABS: CALCIUM 8.8 MG/DL (8.5-10.1)
[2022-05-21 18:52] LABS: CREATININE SERUM 1.71 MG/DL (0.60-1.30)
[2022-05-21] MEDS ORDERED: CATHETER FLUSH 10 ML SYR IVP PRN (20:45)
[2022-05-21] MEDS: hydrALAZINE (APESOLINE) 20 MG/ML VIAL IV PRN (21:34)
[2022-05-21] MEDS: CATHETER FLUSH 10 ML SYR IVP SCH (21:35)
[2022-05-22 04:48] LABS: MONOCYTES % (AUTO) 22 % (0-12)
[2022-05-22 04:51] LABS: BASOPHILS % (AUTO) 0 % (0-10); EOSINOPHILS % (AUTO) 1 % (0-10); HEMATOCRIT 37 % (40-54); HEMOGLOBIN 12.8 g/dL (13.3-17.7); LYMPHOCYTES # (AUTO) 1.9 10^3/uL (1.0-4.0); LYMPHOCYTES % (AUTO) 30 % (12-44); MEAN CORPUSCULAR HEMOGLOBIN 30 pg (25-34); MEAN CORPUSCULAR HGB CONC 34 g/dL (32-36); MEAN CORPUSCULAR VOLUME 86 fL (80-99); MEAN PLATELET VOLUME 11.1 fL (9.0-12.2); MONOCYTES # (AUTO) 1.4 10^3/uL (0.0-1.0); NEUTROPHILS # (AUTO) 2.7 10^3/uL (1.8-7.8); NEUTROPHILS % (AUTO) 43 % (42-75); PLATELET COUNT 112 10^3/uL (130-400); WHITE BLOOD COUNT 6.2 10^3/uL (4.3-11.0)
[2022-05-22 05:11] LABS: POTASSIUM 3.6 MMOL/L (3.6-5.0)
[2022-05-22 05:17] LABS: CREATININE SERUM 1.78 MG/DL (0.60-1.30)
[2022-05-22] MEDS: POTASSIUM CL 10MEQ/50ML IVPB 50 ML IV SCH (05:25)
[2022-05-22] MEDS: KCL 20 MEQ TAB (K-DUR) PO SCH (05:25)
[2022-05-22 05:56] LABS: PHOSPHORUS 3.6 MG/DL (2.3-4.7)
[2022-05-22 05:58] LABS: MAGNESIUM 1.9 MG/DL (1.6-2.4)
[2022-05-22] MEDS: CATHETER FLUSH 10 ML SYR IVP SCH ×3 (06:10→21:18)
[2022-05-22] MEDS: MAGNESIUM 1 GM/100 ML IVPB 100 ML IV SCH (06:10)
[2022-05-22 06:48] LABS: ATYPICAL LYMPHOCYTES 3 %; LYMPHOCYTES % (MANUAL) 37 %; MONOCYTES % (MANUAL) 18 %; NEUTROPHILS % (MANUAL) 42 %; RBC MORPH NORMAL
[2022-05-22] MEDS: hydrALAZINE (APESOLINE) 20 MG/ML VIAL IV PRN ×2 (07:33→14:29)
[2022-05-22] MEDS: ONDANSETRON 4 MG/2 ML (SDV) Z0FRAN IV PRN ×3 (08:14→21:17)
[2022-05-22] MEDS: NITROPRUSSIDE INJECTION 50 MG in D5W IV SOLUTION (EXCEL) 250 ML IV SCH (08:17)
[2022-05-22] MEDS ORDERED: KCL 20 MEQ TAB (K-DUR) PO ONE (09:00)
[2022-05-22] MEDS ORDERED: amLODIPine 5 MG (NORVASC) TAB PO SCH (09:00)
[2022-05-22] MEDS ORDERED: amLODIPine 10 MG (NORVASC) TAB PO NR (10:30)
[2022-05-22] MEDS ORDERED: acetaZOLAMIDE INJ 500 MG/5 ML (DIAMOX) VIAL IV NR (10:30)
--- NOTE | 2022-05-22 10:41 | Tele-ICU Progress Note ---
Subjective Date Seen by a Provider: May 22, 2022 Time Seen by a Provider: 10:41 Subjective/Events-last exam Service provided via interactive audio and video telecommunications E-CARE system to a patient admitted to ICU bed in [facility]. Patient is seen today due to persistent need of ICU care Available chart/ vitals / labs / Images reviewed Video assessment done using teleICU camera, rest of exam as per RN Discussed with RN Events overnight : Afebrile hemodynamically stable Respiratory - I/O = Drips: Pressors- no Hospital course: (05/21) 57y/o M admitted with unctontrolled hypertension. Nipride gtt. A/P HTN urgency/ with hypertensive WHALEN and DARLIN ( previous w/up unknown ) - h/p HTN - losartan was increased from 50 to 100 about 1 week ago - compliant - on presentation BP 180/111( MAP 137 - off nitroprusside gtt last night , back on oit this AM NEED TO MONITOR C LOSELY GIVEN RENAL FUNCTION -- resuming po meds Elev trop to blood in lab - no EKG changes - start ASA , as per cards C/O HEADACHE X 6 WEEKS - CTH - no acute changes DARLIN due to above? / CKD - not improved with control BP - as per RN , bilat edema - gentle diuresis COLEMAN - cont home cpap Anxiety - xanax prn Low PLT - etiology not clear now ,stable , monitor Lines : prop , (Central Line Necessity Reviewed) Mac: void OG: Nutrition: po Analgesia: Anxiety/ delirium VTE Prophylaxis: scd Stress Ulcer Prophylaxis: na Plans in collaboration with bedside consultants and IM MDs. Discussed with RN to reach out if any questions or concerns A total of 31 minutes of critical care time was devoted to this patient today, required to treat and/or prevent further deterioration of critical care condition ( as above ) . I am remotely monitoring this patient from another state. I am unable to do the bedside exam, and history/physical and pertinent information is taken from other notes in the computer and bedside staff. Sepsis Event Evaluation Height, Weight, BMI Height: 6'2.00" Weight: 343lbs. oz. 155.969426xh; 52.84 BMI Method:Stated Exam Exam Patient acknowledged, consented, and participated in this virtual visit which was conducted using real time audio/video Vital Signs Date Time Temp Pulse Resp B/P (MAP) Pulse Ox O2 Delivery O2 Flow Rate FiO2 05/22/22 09:00 80 14 167/85 (112) 92 Room Air 05/22/22 08:17 84 12 192/93 05/22/22 08:00 92 13 164/94 (117) 95 Room Air 05/22/22 07:42 36.1 Room Air 05/22/22 07:40 97 NIV CPAP 05/22/22 07:00 86 18 180/96 (124) 96 Room Air 05/22/22 07:00 86 05/22/22 06:00 85 29 175/112 (135) 96 NIV CPAP 05/22/22 05:00 85 29 173/104 (117) 95 NIV CPAP 05/22/22 04:00 94 18 189/102 (128) 98 NIV CPAP 05/22/22 04:00 97 NIV CPAP 05/22/22 03:30 82 19 176/99 (121) 96 NIV CPAP 05/22/22 03:11 36.5 NIV CPAP 05/22/22 03:03 93 12 189/104 (130) 97 NIV CPAP 05/22/22 02:00 89 20 153/90 (113) 93 NIV CPAP 05/22/22 01:00 94 05/22/22 01:00 94 18 143/82 (100) 94 NIV CPAP 05/22/22 00:00 85 20 147/95 (112) 96 NIV CPAP 05/21/22 23:48 36.7 NIV CPAP 05/21/22 23:46 98 NIV CPAP 05/21/22 23:00 89 18 158/84 (108) 96 NIV CPAP 05/21/22 22:47 NIV CPAP 05/21/22 22:39 82 14 179/111 (133) 97 Room Air 05/21/22 21:00 77 172/90 (111) 96 Room Air 05/21/22 20:45 74 37 166/91 (114) 94 Room Air 05/21/22 20:30 77 168/90 (111) 96 Room Air 05/21/22 20:00 36.4 05/21/22 20:00 97 Room Air 05/21/22 19:59 79 32 187/97 (123) 96 Room Air 05/21/22 19:56 77 27 184/90 (120) 95 Room Air 05/21/22 19:30 68 174/94 (106) 94 Room Air 05/21/22 19:15 67 21 170/89 (115) 95 Room Air 05/21/22 19:04 84 23 111/71 05/21/22 19:00 Room Air 05/21/22 19:00 85 15 111/71 (89) 93 Room Air 05/21/22 19:00 85 05/21/22 18:48 84 20 128/64 05/21/22 18:00 93 147/84 (99) 93 Room Air 05/21/22 17:51 84 20 169/87 05/21/22 17:00 81 9 156/90 (109) 93 Room Air 05/21/22 16:28 92 20 159/103 05/21/22 16:24 05/21/22 16:18 80 20 154/96 05/21/22 16:00 78 23 199/106 (141) 96 Room Air 05/21/22 16:00 36.5 05/21/22 15:59 73 20 189/117 05/21/22 15:42 36.8 67 18 188/91 98 Room Air 05/21/22 15:30 96 Room Air 05/21/22 15:06 67 18 188/91 05/21/22 13:10 63 20 174/97 (122) 98 Room Air 05/21/22 11:57 80 20 160/93 (115) 98 Room Air 05/21/22 10:59 70 18 178/100 (126) 99 Room Air I & O 05/22/22 07:00 Intake Total 600 ml Output Total 1525 ml Balance -925 ml Height & Weight Height: 6'2.00" Weight: 343lbs. oz. 155.481210yr; 52.84 BMI Method:Stated General Appearance: Other Capillary Refill: Less Than 3 Seconds Results Lab Laboratory Tests 05/21/22 09:55 05/21/22 11:06 05/21/22 18:33 05/22/22 04:08 Assessment/Plan Assessment/Plan 1 AKT MINA MD May 22, 2022 10:41
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
[2022-05-22] MEDS ORDERED: meTOprolol SUCCINATE 100 MG (TOPROL XL) TAB PO NR (13:30)
--- NOTE | 2022-05-22 15:44 | Diagnostic Imaging Report ---
EXAMINATION: Renal artery stenosis. COMPARISON: None. TECHNIQUE: Grayscale, color Doppler, and spectral Doppler ultrasound was performed of the bilateral kidneys and renal arteries. FINDINGS: The right kidney measures 12.9 cm in length. There is no hydronephrosis. No renal masses or shadowing calculi are seen. The left kidney measures 11.2 cm in length. There is no hydronephrosis. No masses or shadowing calculi are seen. No free fluid is identified. Velocities and flow measurements of the aorta and of the bilateral renal arteries are not possible due to body habitus and bowel gas. IMPRESSION: 1. Markedly suboptimal exam. No abnormality is seen in the kidneys, although Doppler imaging of the renal arteries could not be performed. Dictated by: Dictated on workstation # [id number]
--- NOTE | 2022-05-22 15:46 | Diagnostic Imaging Report ---
PROCEDURE: US Abdomen, limited. TECHNIQUE: Multiple realtime grayscale images were obtained over the abdomen in various projections. INDICATION: Thrombocytopenia. COMPARISON: None. FINDINGS: The pancreas is not seen due to bowel gas. The aorta is not seen due to bowel gas. The visible portions of the IVC appear normal. The liver demonstrates mildly increased echogenicity. The liver measures 22 cm in length. No focal lesions are seen. The main portal vein is not well seen. This is likely due to body habitus. The common bile duct is not seen. The gallbladder wall does not appear thickened. No stones are seen in the gallbladder. Sonographic Fuller's sign is negative. No free fluid is seen. The right kidney measures 13.5 cm in length. There is no hydronephrosis. IMPRESSION: 1. Hepatomegaly and hepatic steatosis. No acute abnormalities seen in the gallbladder. 2. Suboptimal examination due to bowel gas and body habitus. Dictated by: Dictated on workstation # [id number]
--- NOTE | 2022-05-22 17:23 | Consultation-Cardiology ---
HPI-Cardiology Cardiology Consultation: Date of Consultation 05/22/22 Time Seen by a Provider: 13:15 Date of Admission Attending Physician Kayode Mittal - [facility] Admitting Physician Admitting Physician: Sam Vega MD Attending Physician: Laura Chowdhury DO Consulting Physician RICK TORRES MD, MA, FACP, FACC, [facility], [facility]S Physician requesting consult: Dr Chowdhury HPI: Chief Complaint: Reason for Card consult: Elevated troponin 57 yo man presented with headache and prosper-orbital pressure feeling and found to have markedly elevated bp and admitted by Dr Chowdhury to her service. He has been treated with iv nitroprusside. Symptoms are better. He denies any chest pain. Also denies palp or syncope or shortness of breath. Chronic, mild to mod, intermittent ankle swelling. No n/v/d. Is know to have COLEMAN and treats it with CPAP Review of Systems-Cardiology Review of Systems Constitutional: malaise, tiredness; No weight loss, No weight gain Eyes: No vision change Ears/Nose/Throat: As described under HPI, ear discharge; No nasal drainage, No recent hearing loss, No ulcerations Respiratory: As described under HPI Cardiovascular: As described under HPI Gastrointestinal: As described under HPI Genitourinary: No dysuria, No urine frequency changes Musculoskeletal: No back pain Skin: No rash, No ulcerations Psychiatric/Neurological: No seizure, No focal weakness, No syncope Hematologic: No bleeding abnormalities WKH-Sjweac-Lehmiv Hx Patient Social History 2nd Hand Smoke Exposure: No Have you traveled recently?: No Alcohol Use?: No Pt feels they are or have been: No Immunizations Up To Date Date of Influenza Vaccine: Dec 03, 2021 Past Medical History PMH As described under Assessment. Family Medical History Family Medical History: He does not report fam h/o early CAD or SCD Allergies and Home Medications Allergies Coded Allergies: No Known Drug Allergies (Unverified , 03/04/17) Patient Home Medication List Home Medication List Reviewed: Yes Allopurinol (Allopurinol) 100 Mg Tablet, 100 MG PO BID, (Reported) Entered as Reported by: CHAN SMITH on 03/13/19 1239 Last Action: Reviewed Carvedilol (Carvedilol) 25 Mg Tablet, 25 MG PO BID, (Reported) Entered as Reported by: CHAN SMITH on 03/13/19 1239 Last Action: Reviewed Ergocalciferol (Vitamin D2) (Vitamin D2) 1,250 Mcg (71083 Unit) Capsule, 1,250 MCG PO WEEK, (Reported) Entered as Reported by: JAMEY MEDINA on 05/17/22912 Last Action: Reviewed Losartan Potassium (Losartan Potassium) 100 Mg Tablet, 100 MG PO DAILY, (Reported) Entered as Reported by: MCKENZIE BRANDON on 05/21/22 175 Last Action: Reviewed Discontinued Medications Amlodipine Besylate (Amlodipine Besylate) 10 Mg Tablet, 10 MG PO DAILY, (Reported) Discontinued Reason: No Longer Taking Entered as Reported by: CHAN SMITH on 03/13/19 1239 Last Action: Discontinued Amlodipine Besylate (Amlodipine Besylate) 10 Mg Tablet, 10 MG PO DAILY Discontinued Reason: No Longer Taking Prescribed by: ORLANDO PARRISH on 05/21/22 1430 Last Action: Discontinued Doxycycline Hyclate (Doxycycline Hyclate) 100 Mg Tablet, 100 MG PO BID Discontinued Reason: No Longer Taking Prescribed by: GAURAV FREDERICK on 02/21/21 1115 Furosemide (Furosemide) 40 Mg Tablet, 40 MG PO DAILY, (Reported) Discontinued Reason: No Longer Taking Entered as Reported by: CHAN SMITH on 03/13/19 1239 Furosemide (Furosemide) 20 Mg Tablet, 20 MG PO DAILY, (Reported) Discontinued Reason: No Longer Taking Entered as Reported by: JAMEY MEDINA on 05/17/22912 Last Action: Discontinued Hydrocodone Bit/Acetaminophen (HYDROcodone/APAP 7.5/325 TAB) 1 Each Tablet, 1 TAB PO Q4H Discontinued Reason: No Longer Taking Prescribed by: CORRINA LINDSEY on 03/19/19 1259 Hydrocodone/Acetaminophen (Hydrocodone-Acetamin 5-325 mg) 1 Each Tablet, 1 TAB PO Q4H PRN for PAIN-MODERATE (5-7) Discontinued Reason: No Longer Taking Prescribed by: GAURAV FREDERICK on 02/21/21 1115 Losartan Potassium (Losartan Potassium) 100 Mg Tablet, 100 MG PO DAILY, (Reported) Discontinued Reason: No Longer Taking Entered as Reported by: CHAN SMITH on 03/13/19 1239 Losartan Potassium (Losartan Potassium) 50 Mg Tablet, 50 MG PO DAILY, (Reported) Discontinued Reason: No Longer Taking Entered as Reported by: JAMEY MEDINA on 05/17/22 0913 Last Action: Discontinued Metronidazole (Metronidazole) 500 Mg Tablet, 500 MG PO TID Discontinued Reason: No Longer Taking Prescribed by: GAURAV FREDERICK on 02/21/21 1115 Potassium Chloride (Potassium Chloride) 20 Meq Tablet.er, 20 MEQ PO DAILY, (Reported) Discontinued Reason: No Longer Taking Entered as Reported by: CHAN SMITH on 03/13/19 1239 Last Action: Discontinued Physical Exam-Cardiology Physical Exam Vital Signs/I&O 05/22/22 05/22/22 05/22/22 05/22/22 06:00 07:00 07:00 07:40 Pulse 85 86 86 Resp 29 18 B/P (MAP) 175/112 (135) 180/96 (124) Pulse Ox 96 96 97 O2 Delivery NIV CPAP Room Air NIV CPAP 05/22/22 05/22/22 05/22/22 05/22/22 07:42 08:00 08:17 09:00 Temp 36.1 Pulse 92 84 80 Resp 13 12 14 B/P (MAP) 164/94 (117) 192/93 167/85 (112) Pulse Ox 95 92 O2 Delivery Room Air Room Air Room Air 05/22/22 05/22/22 05/22/22 05/22/22 10:00 11:00 11:37 11:40 Temp 36.3 Pulse 87 77 Resp 33 13 B/P (MAP) 161/91 (114) 169/98 (121) Pulse Ox 94 95 97 O2 Delivery Room Air Room Air NIV CPAP 05/22/22 05/22/22 05/22/22 05/22/22 12:00 12:55 13:00 14:00 Pulse 80 77 80 84 Resp 18 19 11 B/P (MAP) 154/84 (107) 183/108 (133) 164/88 (113) Pulse Ox 95 95 95 O2 Delivery Room Air Room Air Room Air 05/22/22 05/22/22 05/22/22 15:00 15:16 16:00 Temp 36.6 Pulse 86 85 Resp 13 20 B/P (MAP) 134/80 (98) 142/79 (100) Pulse Ox 96 94 O2 Delivery Room Air Room Air 05/22/22 00:00 Intake Total 350 ml Output Total 275 ml Balance 75 ml Capillary Refill : Less Than 3 Seconds Constitutional: AAO x 3, well-developed, well-nourished, other (obese) HEENT: PERRL, EOMI, hearing is well preserved Neck: carotid pulses are 2 + bilaterally, with good upstrokes Respiratory: No accessory muscle use; chest expansion is symmetric, chest is bilaterally symmetric, other (fair to good, bilateral air entry) Cardiovascular: regular rate-rhythm, S1 and S2, systolic murmur (soft ARIAN at card base) Gastrointestinal: No tender; soft; No guarding, No rebound; audible bowel sounds Extremities: No clubbing, No cyanosis, No significant edema Neurologic/Psychiatric: oriented x 3, other (moves all limbs equally) Skin: No rash on exposed areas, No ulcerations on exposed areas Data Review Labs Laboratory Tests 05/21/22 18:33: Sodium Level 143, Potassium Level 3.7, Chloride Level 111H, Carbon Dioxide Level 19L, Anion Gap 13, Blood Urea Nitrogen 25H, Creatinine 1.71H, Estimat Glomerular Filtration Rate 46, BUN/Creatinine Ratio 15, Glucose Level 119H, Calcium Level 8.8, Troponin I 0.080H 05/22/22 04:08: Sodium Level 141, Potassium Level 3.6, Chloride Level 111H, Carbon Dioxide Level 19L, Anion Gap 11, Blood Urea Nitrogen 24H, Creatinine 1.78H, Estimat Glomerular Filtration Rate 43, BUN/Creatinine Ratio 13, Glucose Level 98, Calcium Level 9.0, White Blood Count 6.2, Red Blood Count 4.32, Hemoglobin 12.8L, Hematocrit 37L, Mean Corpuscular Volume 86, Mean Corpuscular Hemoglobin 30, Mean Corpuscular Hemoglobin Concent 34, Red Cell Distribution Width 13.2, Platelet Count 112L, Mean Platelet Volume 11.1, Immature Granulocyte % (Auto) 4, Neutrophils (%) (Auto) 43, Lymphocytes (%) (Auto) 30, Monocytes (%) (Auto) 22H, Eosinophils (%) (Auto) 1, Basophils (%) (Auto) 0, Neutrophils # (Auto) 2.7, Lymphocytes # (Auto) 1.9, Monocytes # (Auto) 1.4H, Eosinophils # (Auto) 0.0, Basophils # (Auto) 0.0, Immature Granulocyte # (Auto) 0.3H, Neutrophils % (Manual) 42, Lymphocytes % (Manual) 37, Monocytes % (Manual) 18, Atypical L ymphocytes 3, Percent Immature Platelet Fraction 4.3, Blood Morphology Comment NORMAL, Phosphorus Level 3.6, Magnesium Level 1.9 Microbiology 05/21/22 MRSA Screen - Final, Complete MRSA not isolated A/P-Cardiology Assessment/Admission Diagnosis Malignant hypertension Type 2 WI due to malignant hypertension DARLIN due to 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
[2022-05-22] MEDS ORDERED: doxAzosin 4 MG (CARDURA) TAB PO NR (17:45)
[2022-05-22] MEDS ORDERED: ACETAMINOPHEN 325 MG TABLET PO PRN (18:00)
[2022-05-22] MEDS ORDERED: ANTACID SUSP 30 ML UDC (MYLANTA) PO PRN (18:00)
[2022-05-22] MEDS ORDERED: HYDROmorphone 2 MG/ML VIAL (DILAUDID) IV PRN (18:00)
[2022-05-22] MEDS ORDERED: diphenhydrAMINE 25 MG TAB (BENADRYL) PO PRN (18:00)
[2022-05-22] MEDS ORDERED: SCOPOLAMINE 1.5 MG (TRANSDERM-SCOP) PATCH TD NR (18:00)
[2022-05-22] MEDS ORDERED: diphenhydrAMINE 50 MG/ML INJ (BENADRYL) IVP PRN (18:00)
[2022-05-22] MEDS ORDERED: MILK OF MAGNESIA 400 MG/5 ML 30 ML UDC PO PRN (18:00)
[2022-05-22] MEDS ORDERED: MELATONIN 3 MG TABLET PO PRN (18:00)
[2022-05-22] MEDS ORDERED: ONDANSETRON 4 MG (ZOFRAN) ORAL DISSOLVE TAB PO PRN (18:00)
[2022-05-22] MEDS ORDERED: ONDANSETRON 4 MG/2 ML (SDV) Z0FRAN IV PRN (18:00)
[2022-05-22] MEDS ORDERED: LACTULOSE SYRUP 10GM/15ML (ENULOSE) 30ML UDC PO PRN (18:00)
[2022-05-22] MEDS ORDERED: polyethylene glycoL POWDER 17 GM (MIRALAX) PACK PO PRN (18:00)
[2022-05-22] MEDS ORDERED: CALCIUM CARBONATE 500 MG (TUMS) TAB.CHEW PO PRN (18:00)
[2022-05-22] MEDS ORDERED: BISACODYL 10 MG SUPP (DULCOLAX) PR PRN (18:00)
[2022-05-22] MEDS ORDERED: ENOXAPARIN 40 MG/0.4 ML (LOVENOX) SYR SC SCH (18:00)
[2022-05-22] MEDS: METOCLOPRAMIDE INJ 10 MG/2 ML (REGLAN) IVP PRN (18:20)
[2022-05-22] MEDS: ENOXAPARIN 60 MG/0.6 ML (LOVENOX) SYR SC SCH (18:23)
[2022-05-22 19:09] VITALS: BP 174/97
[2022-05-22] MEDS ORDERED: RT-ALBUTEROL SULF 2.5 MG/3 ML PRE-MIX VIAL INH PRN (20:00)
[2022-05-22] MEDS: SENNOSIDES 8.6 MG (SENOKOT) TAB PO SCH (21:16)
[2022-05-22] MEDS: DOCUSATE SODIUM 100 MG (COLACE) CAP PO SCH (21:16)
[2022-05-22] MEDS: meTOprolol SUCCINATE 100 MG (TOPROL XL) TAB PO SCH (21:17)
[2022-05-22] MEDS: doxAzosin 4 MG (CARDURA) TAB PO SCH (21:17)
[2022-05-23 05:29] LABS: BASOPHILS % (AUTO) 0 % (0-10); MONOCYTES % (AUTO) 24 % (0-12)
[2022-05-23 05:30] LABS: EOSINOPHILS % (AUTO) 1 % (0-10); HEMATOCRIT 36 % (40-54); HEMOGLOBIN 12.3 g/dL (13.3-17.7); LYMPHOCYTES # (AUTO) 1.7 10^3/uL (1.0-4.0); LYMPHOCYTES % (AUTO) 26 % (12-44); MEAN CORPUSCULAR HEMOGLOBIN 30 pg (25-34); MEAN CORPUSCULAR HGB CONC 34 g/dL (32-36); MEAN CORPUSCULAR VOLUME 88 fL (80-99); MEAN PLATELET VOLUME 11.2 fL (9.0-12.2); MONOCYTES # (AUTO) 1.6 10^3/uL (0.0-1.0); NEUTROPHILS # (AUTO) 3.1 10^3/uL (1.8-7.8); NEUTROPHILS % (AUTO) 47 % (42-75); PLATELET COUNT 113 10^3/uL (130-400); WHITE BLOOD COUNT 6.6 10^3/uL (4.3-11.0)
[2022-05-23 05:47] LABS: ALBUMIN 3.7 GM/DL (3.2-4.5); BILIRUBIN,TOTAL 1.9 MG/DL (0.1-1.0); CALCIUM 9.1 MG/DL (8.5-10.1); CREATININE SERUM 2.19 MG/DL (0.60-1.30); POTASSIUM 3.7 MMOL/L (3.6-5.0); TOTAL PROTEIN 6.6 GM/DL (6.4-8.2)
[2022-05-23] MEDS: KCL 20 MEQ TAB (K-DUR) PO SCH (05:53)
[2022-05-23] MEDS: POTASSIUM CL 10MEQ/50ML IVPB 50 ML IV SCH (05:53)
[2022-05-23] MEDS: MAGNESIUM 1 GM/100 ML IVPB 100 ML IV SCH (05:53)
[2022-05-23 06:23] LABS: MAGNESIUM 2.1 MG/DL (1.6-2.4)
[2022-05-23] MEDS: ENOXAPARIN 60 MG/0.6 ML (LOVENOX) SYR SC SCH (06:23)
[2022-05-23] MEDS: doxAzosin 4 MG (CARDURA) TAB PO SCH ×3 (06:23→20:09)
[2022-05-23] MEDS: CATHETER FLUSH 10 ML SYR IVP SCH ×3 (06:24→20:10)
[2022-05-23] MEDS: amLODIPine 5 MG (NORVASC) TAB PO SCH (08:28)
[2022-05-23] MEDS: DOCUSATE SODIUM 100 MG (COLACE) CAP PO SCH ×2 (08:28→20:10)
[2022-05-23] MEDS: SENNOSIDES 8.6 MG (SENOKOT) TAB PO SCH ×2 (08:28→20:10)
[2022-05-23] MEDS: meTOprolol SUCCINATE 100 MG (TOPROL XL) TAB PO SCH ×2 (08:28→20:09)
[2022-05-23] MEDS ORDERED: ASPIRIN 325 MG (5 GR) TABLET PO SCH (09:00)
--- NOTE | 2022-05-23 10:43 | Tele-ICU Progress Note ---
Subjective Date Seen by a Provider: May 23, 2022 Time Seen by a Provider: 10:43 Subjective/Events-last exam Service provided via interactive audio and video telecommunications E-CARE system to a patient admitted to ICU bed in [facility]. Patient is seen today due to persistent need of ICU care Available chart/ vitals / labs / Images reviewed Video assessment done using teleICU camera, rest of exam as per RN Discussed with RN Events overnight : Afebrile hemodynamically stable Respiratory - I/O = Drips: Pressors- no Hospital course: (05/21) 57y/o M admitted with unctontrolled hypertension. Nipride gtt. 05/21 - diamox 250 x 1 , gtt cont 05/23 - off ggt , cr increased A/P HTN urgency/ with hypertensive WHALEN and DARLIN - off nitroprusside gtt last night -- resuming po meds - cards follow . W/up in progress Elev trop to blood in lab - no EKG changes - ASA , as per cards C/O HEADACHE X 6 WEEKS - CTH - no acute changes DARLIN due to above? / CKD - not improved with control BP, but also received one dose diamox 250 05/22 - follow - as per RN , bilat edema COLEMAN - cont home cpap Anxiety - xanax prn Low PLT - etiology not clear now ,stable , monitor Lines : prop , (Central Line Necessity Reviewed) Mac: void OG: Nutrition: po Analgesia: Anxiety/ delirium VTE Prophylaxis: jenny 40 Stress Ulcer Prophylaxis: na Plans in collaboration with bedside consultants and IM MDs. Discussed with RN to reach out if any questions or concerns A total of 20 minutes of critical care time was devoted to this patient today, required to treat and/or prevent further deterioration of critical care condition ( as above ) . I am remotely monitoring this patient from another state. I am unable to do the bedside exam, and history/physical and pertinent information is taken from other notes in the computer and bedside staff. Sepsis Event Evaluation Height, Weight, BMI Height: 6'2.00" Weight: 343lbs. oz. 155.620452ce; 52.61 BMI Method:Stated Exam Exam Patient acknowledged, consented, and participated in this virtual visit which was conducted using real time audio/video Vital Signs Date Time Temp Pulse Resp B/P (MAP) Pulse Ox O2 Delivery O2 Flow Rate FiO2 05/23/22 09:00 70 22 170/91 (117) 95 NIV CPAP 05/23/22 08:00 76 16 125/81 (96) 96 NIV CPAP 05/23/22 07:40 94 Room Air 05/23/22 07:00 70 17 155/72 (99) 93 NIV CPAP 05/23/22 07:00 68 05/23/22 06:00 69 12 171/80 (113) 91 NIV CPAP 05/23/22 05:00 66 10 115/92 (100) 95 NIV CPAP 05/23/22 04:00 70 18 139/70 (93) 92 NIV CPAP 05/23/22 03:58 94 NIV CPAP 05/23/22 03:36 83 39 140/76 (95) 89 NIV CPAP 05/23/22 03:00 75 19 121/62 (83) 93 NIV CPAP 05/23/22 02:39 37.2 NIV CPAP 05/23/22 02:00 72 17 140/75 (94) 94 NIV CPAP 05/23/22 01:00 75 20 133/70 (93) 91 NIV CPAP 05/23/22 01:00 75 05/23/22 00:25 94 NIV CPAP 98 05/23/22 00:04 37.0 NIV CPAP 05/23/22 00:00 91 22 158/77 (104) 95 NIV CPAP 05/22/22 23:00 82 15 119/74 (88) 94 NIV CPAP 05/22/22 22:11 37.2 05/22/22 22:00 84 33 145/75 (89) 93 NIV CPAP 05/22/22 21:00 83 22 168/84 (107) 93 NIV CPAP 05/22/22 20:20 NIV CPAP 05/22/22 20:00 84 29 150/80 (101) 92 Room Air 05/22/22 19:31 94 Room Air 05/22/22 19:30 Room Air 05/22/22 19:11 37.0 05/22/22 19:09 36.8 70 97 21 05/22/22 19:00 90 05/22/22 19:00 90 15 169/83 (108) 94 Room Air 05/22/22 18:00 96 19 158/119 (132) 95 Room Air 05/22/22 17:41 37.0 05/22/22 17:00 85 27 155/86 (109) 96 Room Air 05/22/22 16:00 85 20 142/79 (100) 94 Room Air 05/22/22 15:40 97 NIV CPAP 05/22/22 15:16 36.6 05/22/22 15:00 86 13 134/80 (98) 96 Room Air 05/22/22 14:00 84 11 164/88 (113) 95 Room Air 05/22/22 13:00 80 19 183/108 (133) 95 Room Air 05/22/22 12:55 77 05/22/22 12:00 80 18 154/84 (107) 95 Room Air 05/22/22 11:40 97 NIV CPAP 05/22/22 11:37 36.3 05/22/22 11:00 77 13 169/98 (121) 95 Room Air I & O 05/23/22 07:00 Intake Total 1020 ml Output Total 3300 ml Balance -2280 ml Height & Weight Height: 6'2.00" Weight: 343lbs. oz. 155.419575rt; 52.61 BMI Method:Stated General Appearance: No Apparent Distress, Chronically ill, Obese HEENT: PERRL/EOMI, Moist Mucous Membranes; No Scleral Icterus (L), No Scleral Icterus (R) Neck: Non Tender, Supple; No JVD Respiratory: Lungs Clear, Normal Breath Sounds Cardiovascular: Regular Rate, Rhythm Capillary Refill: Less Than 3 Seconds Extremity: Normal Capillary Refill, Normal Inspection, No Calf Tenderness, Other (moves all extremities spontaneously) Neurologic/Psychiatric: Alert, Oriented x3, No Motor/Sensory Deficits, Normal Mood/Affect Skin: Normal Color, Warm/Dry Results Lab Laboratory Tests 05/21/22 11:06 05/21/22 18:33 05/22/22 04:08 05/23/22 04:33 Assessment/Plan Assessment/Plan 1 KAT MINA MD May 23, 2022 10:43
--- NOTE | 2022-05-23 11:34 | Progress Note - Hospitalist ---
YANNI MCKEON 05/23/22 1134: Subjective HPI/CC On Admission Pablo Casanova is a 57 yo M w/ hx of COLEMAN and uncontrolled HTN who presented on 05/21 with a WHALEN and SBP in the 200s. Subjective/Events-last exam Pablo says he is feeling much better today. He says his WHALEN is gone and he has not vomited or had nausea since yesterday. at bedside with him this AM, notes he does very poor with water intake and mostly drinks soda. He notes he made pigs feet the day that he came in as well. He denies WHALEN, vision change, cp, N/V/D. Review of Systems HEENT: No Head Aches, No Visual Changes Pulmonary: No Dyspnea, No Cough Cardiovascular: No: Chest Pain, Palpitations Gastrointestinal: No: Nausea, Vomiting Objective Exam Vital Signs Vital Signs Date Time Temp Pulse Resp B/P (MAP) Pulse Ox O2 Delivery O2 Flow Rate FiO2 05/23/22 09:00 70 22 170/91 (117) 95 NIV CPAP 05/23/22 02:39 37.2 05/23/22 00:25 98 Capillary Refill : Less Than 3 Seconds General Appearance: No Apparent Distress, Obese HEENT: PERRL/EOMI; No Scleral Icterus (L), No Scleral Icterus (R) Neck: Non Tender, Supple; No JVD Respiratory: Lungs Clear, No Accessory Muscle Use, No Respiratory Distress Cardiovascular: No JVD, No Murmur, Normal Peripheral Pulses Gastrointestinal: Non Tender, Soft Extremity: Normal Inspection, Normal Range of Motion, No Calf Tenderness Neurologic/Psychiatric: Alert, Oriented x3, No Motor/Sensory Deficits, Normal Mood/Affect, 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 Imaging: Reviewed Imaging Films, Reviewed Imaging Report Assessment/Plan Assessment and Plan Assess & Plan/Chief Complaint Hypertensive emergency Elevated troponin -SBP >200s with signs of end organ damage -Cr at 1.85 on admit -denied vision changes, N/V on admit, CTH negative for acute processes -Nitroprusside given in ED, weaning off drip -Hydralazine ordered for sbp >180 -ordering norvasc 10mg to transition to po management of bp -Troponin trending down -recent increase to losartan 100mg, ordering renal artery u/s for possible SAY -Off nitro drip now, cards added metoprolol, doxazosin, amlodipine -last hydralazine at 1400 05/22 DARLIN CKD stage III -1.82 Cr on admit, fluctuating, 2.19 05/23 -Renal artery u/s limited by body habitus, doppler not performed -Abdominal U/s reviewed -Had discussion today about decreasing salt intake and increasing water intake COLEMAN -uses cpap Dispo: asymptomatic today and off drip, moving to floor, monitor kidney function. LAURA LOERA DO 05/24/22 0518: Supervisory-Addendum Brief Verification & Attestation Participated in pt care: history, MDM, physical Personally performed: exam, history, MDM, supervision of care Care discussed with: Medical Student Procedures: n/a Results interpretation: Verified all documentation Verification and Attestation of Medical Student E/M Service A medical student performed and documented this service in my presence. I rev iewed and verified all information documented by the medical student and made modifications to such information, when appropriate. I personally performed the physical exam and medical decision making. Laura Loera May 24, 2022,05:18 YANNI MCKEON May 23, 2022 11:34 LAURA LOERA DO May 24, 2022 05:18
--- NOTE | 2022-05-23 12:17 | Progress Note - Cardiology ---
Cardiology SOAP Progress Note Subjective: Sitting up in recliner at the bedside States he feels much better today No c/o CP or SOB or palpitations No c/o n/v/d Objective: I&O/Vital Signs 05/23/22 05/23/22 05/23/22 05/23/22 05:00 06:00 07:00 07:00 Pulse 66 69 68 70 Resp 10 12 17 B/P (MAP) 115/92 (100) 171/80 (113) 155/72 (99) Pulse Ox 95 91 93 O2 Delivery NIV CPAP NIV CPAP NIV CPAP 05/23/22 05/23/22 05/23/22 05/23/22 07:40 08:00 09:00 10:00 Pulse 76 70 62 Resp 16 22 17 B/P (MAP) 125/81 (96) 170/91 (117) 143/78 (99) Pulse Ox 94 96 95 94 O2 Delivery Room Air NIV CPAP NIV CPAP NIV CPAP 05/23/22 05/23/22 05/23/22 05/23/22 11:00 11:40 12:00 13:12 Pulse 63 66 69 Resp 22 19 B/P (MAP) 145/79 (101) 136/74 (94) Pulse Ox 94 94 94 O2 Delivery NIV CPAP Room Air NIV CPAP 05/23/22 00:00 Intake Total 400 ml Output Total 1600 ml Balance -1200 ml Weight (Pounds): 343 Weight (Calculated Kilograms): 155.979823 Constitutional: AAO x 3, well-developed, well-nourished, other (obese) Respiratory: No accessory muscle use; chest expansion is symmetric, chest is bilaterally symmetric, other (fair to good, bilateral air entry) Cardiovascular: regular rate-rhythm, S1 and S2, systolic murmur (soft ARIAN at card base) Gastrointestional: No tender; soft; No guarding, No rebound; audible bowel sounds Extremities: No clubbing, No cyanosis, No significant edema Neurologic/Psychiatric: oriented x 3, other (moves all limbs equally) Skin: No rash on exposed areas, No ulcerations on exposed areas Results/Procedures: Labs Laboratory Tests 05/23/22 04:33: White Blood Count 6.6, Red Blood Count 4.12L, Hemoglobin 12.3L, Hematocrit 36L, Mean Corpuscular Volume 88, Mean Corpuscular Hemoglobin 30, Mean Corpuscular Hemoglobin Concent 34, Red Cell Distribution Width 13.6, Platelet Count 113L, Mean Platelet Volume 11.2, Immature Granulocyte % (Auto) 2, Neutrophils (%) (Auto) 47, Lymphocytes (%) (Auto) 26, Monocytes (%) (Auto) 24H, Eosinophils (%) (Auto) 1, Basophils (%) (Auto) 0, Neutrophils # (Auto) 3.1, Lymphocytes # (Auto) 1.7, Monocytes # (Auto) 1.6H, Eosinophils # (Auto) 0.0, Basophils # (Auto) 0.0, Immature Granulocyte # (Auto) 0.1, Percent Immature Platelet Fraction 4.2, Sodium Level 144, Potassium Level 3.7, Chloride Level 111H, Carbon Dioxide Level 19L, Anion Gap 14, Blood Urea Nitrogen 27H, Creatinine 2.19H, Estimat Glomerular Filtration Rate 34, BUN/Creatinine Ratio 12, Glucose Level 107H, Calcium Level 9.1, Corrected Calcium 9.3, Phosphorus Level 4.0, Magnesium Level 2.1, Total Bilirubin 1.9H, Aspartate Amino Transf (AST/SGOT) 20, Alanine Aminotransferase (ALT/SGPT) 26, Alkaline Phosphatase 57, Total Protein 6.6, Albumin 3.7 Microbiology 05/21/22 MRSA Screen - Final, Complete MRSA not isolated A/P: Assessment: Malignant hypertension Type 2 [place] due to malignant hypertension DARLIN - due to malignant hypertension on CKD 2-3 - renal function worse today COLEMAN - treated with CPAP Elevated BMI of approx 53 Thrombocytopenia of undetermined etiology - medical services managing Plan: * Continue oral amlodipine, metoprolol succinate, and doxazosin * DARLIN d/t malignant HTN * - Cr is somewhat worse today - monitor * Monitor labs * We will stop the ASA and change Lovenox to DVT dosing d/t mild thrombocytopenia of undetermined etiology - management per medical services * Echo is pending SHARDA CARVAJAL May 23, 2022 12:17
--- NOTE | 2022-05-23 14:40 | Progress Note - Cardiology ---
Cardiology SOAP Progress Note Subjective: Gen malaise (better than yesterday) No cp or palp or syncope No shortness of breath at rest No focal weakness No n/v/d Objective: I&O/Vital Signs 05/23/22 05/23/22 05/23/22 05/23/22 02:39 03:00 03:36 03:58 Temp 37.2 Pulse 75 83 Resp 19 39 B/P (MAP) 121/62 (83) 140/76 (95) Pulse Ox 93 89 94 O2 Delivery NIV CPAP NIV CPAP NIV CPAP NIV CPAP 05/23/22 05/23/22 05/23/22 05/23/22 04:00 05:00 06:00 07:00 Pulse 70 66 69 68 Resp 18 10 12 B/P (MAP) 139/70 (93) 115/92 (100) 171/80 (113) Pulse Ox 92 95 91 O2 Delivery NIV CPAP NIV CPAP NIV CPAP 05/23/22 05/23/22 05/23/22 05/23/22 07:00 07:40 08:00 09:00 Pulse 70 76 70 Resp 17 16 22 B/P (MAP) 155/72 (99) 125/81 (96) 170/91 (117) Pulse Ox 93 94 96 95 O2 Delivery NIV CPAP Room Air NIV CPAP NIV CPAP 05/23/22 05/23/22 05/23/22 05/23/22 10:00 11:00 11:40 12:00 Pulse 62 63 66 Resp 17 22 19 B/P (MAP) 143/78 (99) 145/79 (101) 136/74 (94) Pulse Ox 94 94 94 94 O2 Delivery NIV CPAP NIV CPAP Room Air NIV CPAP 05/23/22 13:12 Pulse 69 05/23/22 00:00 Intake Total 400 ml Output Total 1600 ml Balance -1200 ml Weight (Pounds): 343 Weight (Calculated Kilograms): 155.074192 Constitutional: AAO x 3, well-developed, well-nourished, other (obese) Respiratory: No accessory muscle use; chest expansion is symmetric, chest is bilaterally symmetric, other (fair to good, bilateral air entry) Cardiovascular: regular rate-rhythm, S1 and S2, systolic murmur (soft ARIAN at card base) Gastrointestional: No tender; soft; No guarding, No rebound; audible bowel sounds Extremities: No clubbing, No cyanosis, No significant edema Neurologic/Psychiatric: oriented x 3, other (moves all limbs equally) Skin: No rash on exposed areas, No ulcerations on exposed areas Results/Procedures: Labs Laboratory Tests 05/23/22 04:33: White Blood Count 6.6, Red Blood Count 4.12L, Hemoglobin 12.3L, Hematocrit 36L, Mean Corpuscular Volume 88, Mean Corpuscular Hemoglobin 30, Mean Corpuscular H emoglobin Concent 34, Red Cell Distribution Width 13.6, Platelet Count 113L, Me an Platelet Volume 11.2, Immature Granulocyte % (Auto) 2, Neutrophils (%) (Auto) 47, Lymphocytes (%) (Auto) 26, Monocytes (%) (Auto) 24H, Eosinophils (%) (Auto) 1, Basophils (%) (Auto) 0, Neutrophils # (Auto) 3.1, Lymphocytes # (Auto) 1.7, Monocytes # (Auto) 1.6H, Eosinophils # (Auto) 0.0, Basophils # (Auto) 0.0, Immature Granulocyte # (Auto) 0.1, Percent Immature Platelet Fraction 4.2, Sodium Level 144, Potassium Level 3.7, Chloride Level 111H, Carbon Dioxide Level 19L, Anion Gap 14, Blood Urea Nitrogen 27H, Creatinine 2.19H, Estimat Glomerular Filtration Rate 34, BUN/Creatinine Ratio 12, Glucose Level 107H, Calcium Level 9.1, Corrected Calcium 9.3, Phosphorus Level 4.0, Magnesium Level 2.1, Total Bilirubin 1.9H, Aspartate Amino Transf (AST/SGOT) 20, Alanine Aminotransferase (ALT/SGPT) 26, Alkaline Phosphatase 57, Total Protein 6.6, Albumin 3.7 Microbiology 05/21/22 MRSA Screen - Final, Complete MRSA not isolated Laboratory Tests 05/21/22 18:33 05/22/22 04:08 05/23/22 04:33 A/P: Assessment: Malignant hypertension Type 2 [place] due to malignant hypertension DARLIN - due to malignant hypertension on CKD 2-3 - renal function worse today (05/23/22) COLEMAN - treated with CPAP Elevated BMI of approx 53 Thrombocytopenia of undetermined etiology - medical services managing Plan: * Continue oral amlodipine, metoprolol succinate, and doxazosin * DARLIN d/t malignant HTN * - Cr is somewhat worse today - monitor- Med svce managing DARLIN and CKD * Monitor labs * We will stop the ASA and change Lovenox to DVT dosing d/t mild thrombocytopenia of undetermined etiology - further management is by the Medical services * RICK Almanza MD FACP FAC CCDS May 23, 2022 14:40
[2022-05-23] MEDS: ENOXAPARIN 60 MG/0.6 ML (LOVENOX) SYR SQ SCH (17:37)
[2022-05-24] MEDS: doxAzosin 4 MG (CARDURA) TAB PO SCH (04:51)
[2022-05-24] MEDS: ENOXAPARIN 60 MG/0.6 ML (LOVENOX) SYR SQ SCH (04:52)
[2022-05-24] MEDS: CATHETER FLUSH 10 ML SYR IVP SCH (04:52)
[2022-05-24 05:37] LABS: BASOPHILS % (AUTO) 0 % (0-10)
[2022-05-24 05:39] LABS: EOSINOPHILS % (AUTO) 0 % (0-10); HEMATOCRIT 35 % (40-54); LYMPHOCYTES % (AUTO) 40 % (12-44); MEAN CORPUSCULAR HEMOGLOBIN 30 pg (25-34); MEAN CORPUSCULAR HGB CONC 34 g/dL (32-36); MEAN CORPUSCULAR VOLUME 87 fL (80-99); MEAN PLATELET VOLUME 11.3 fL (9.0-12.2); MONOCYTES % (AUTO) 21 % (0-12); NEUTROPHILS # (AUTO) 1.9 10^3/uL (1.8-7.8); NEUTROPHILS % (AUTO) 37 % (42-75); PLATELET COUNT 102 10^3/uL (130-400); WHITE BLOOD COUNT 5.1 10^3/uL (4.3-11.0)
[2022-05-24 06:01] LABS: ALBUMIN 3.5 GM/DL (3.2-4.5); BILIRUBIN,TOTAL 1.5 MG/DL (0.1-1.0); CALCIUM 8.8 MG/DL (8.5-10.1); CREATININE SERUM 2.1 MG/DL (0.60-1.30); MAGNESIUM 2.1 MG/DL (1.6-2.4); POTASSIUM 3.6 MMOL/L (3.6-5.0); TOTAL PROTEIN 6.3 GM/DL (6.4-8.2)
--- NOTE | 2022-05-24 08:45 | Progress Note - Cardiology ---
Cardiology SOAP Progress Note Subjective: Lying in bed Echocardiogram had just been completed States he became nauseated this morning at breakfast time No report of vomiting or diarrhea No c/o CP, palpitations at the bedside Objective: I&O/Vital Signs 05/24/22 05/24/22 05/24/22 05/24/22 00:15 01:00 04:50 08:56 Temp 37.1 36.8 36.8 Pulse 74 76 77 Resp 24 22 B/P (MAP) 150/89 (109) 149/90 (109) Pulse Ox 93 95 O2 Delivery NIV CPAP NIV CPAP 05/24/22 09:00 Pulse Ox 97 O2 Delivery Room Air 05/24/22 00:00 Intake Total 480 ml Output Total 1450 ml Balance -970 ml Weight (Pounds): 343 Weight (Calculated Kilograms): 155.460734 Constitutional: AAO x 3, well-developed, well-nourished, other (obese) Respiratory: No accessory muscle use; chest expansion is symmetric, chest is bilaterally symmetric, other (fair to good, bilateral air entry) Cardiovascular: regular rate-rhythm, S1 and S2, systolic murmur (soft ARIAN at card base) Gastrointestional: No tender; soft; No guarding, No rebound; audible bowel sounds Extremities: No clubbing, No cyanosis, No significant edema Neurologic/Psychiatric: oriented x 3, other (moves all limbs equally) Skin: No rash on exposed areas, No ulcerations on exposed areas Results/Procedures: Labs Laboratory Tests 05/24/22 05:14: White Blood Count 5.1, Red Blood Count 4.04L, Hemoglobin 12.0L, Hematocrit 35L, Mean Corpuscular Volume 87, Mean Corpuscular Hemoglobin 30, Mean Corpuscular Hemoglobin Concent 34, Red Cell Distribution Width 13.1, Platelet Count 102L, Mean Platelet Volume 11.3, Immature Granulocyte % (Auto) 2, Neutrophils (%) (Auto) 37L, Lymphocytes (%) (Auto) 40, Monocytes (%) (Auto) 21H, Eosinophils (%) (Auto) 0, Basophils (%) (Auto) 0, Neutrophils # (Auto) 1.9, Lymphocytes # (Auto) 2.0, Monocytes # (Auto) 1.0, Eosinophils # (Auto) 0.0, Basophils # (Auto) 0.0, Immature Granulocyte # (Auto) 0.1, Percent Immature Platelet Fraction 4.5, Sodium Level 140, Potassium Level 3.6, Chloride Level 109H, Carbon Dioxide Level 20L, Anion Gap 11, Blood Urea Nitrogen 29H, Creatinine 2.10H, Estimat Glomerular Filtration Rate 36, BUN/Creatinine Ratio 14, Glucose Level 97, Calcium Level 8.8, Corrected Calcium 9.2, Magnesium Level 2.1, Total Bilirubin 1.5H, Aspartate Amino Transf (AST/SGOT) 30, Alanine Aminotransferase (ALT/SGPT) 34, Alkaline Phosphatase 56, Total Protein 6.3L, Albumin 3.5 Microbiology 05/21/22 MRSA Screen - Final, Complete MRSA not isolated A/P: Assessment: Malignant hypertension - requiring multi-drug regimen Type 2 [place] due to malignant hypertension DARLIN - due to malignant hypertension on CKD 2-3 - renal function slightly improved today (05/24/22) COLEMAN - treated with CPAP Elevated BMI of approx 53 Thrombocytopenia of undetermined etiology - medical services managing Nausea - undetermined etiology - medical services managing Plan: * Continue oral amlodipine, metoprolol succinate, and doxazosin * DARLIN d/t malignant HTN * - Cr is slightly improved today - monitor- Med svce managing DARLIN and CKD * Monitor labs * Mild thrombocytopenia of undetermined etiology * we advise f/u with PCP as out pt MADAY for f/u lab and management * Nausea of undetermined etiology - medical services managing * Ok to discharge home from cardiac stand point SHARDA CARVAJAL May 24, 2022 08:45
[2022-05-24] MEDS: meTOprolol SUCCINATE 100 MG (TOPROL XL) TAB PO SCH (08:47)
[2022-05-24] MEDS: DOCUSATE SODIUM 100 MG (COLACE) CAP PO SCH (08:47)
[2022-05-24] MEDS: SENNOSIDES 8.6 MG (SENOKOT) TAB PO SCH (08:47)
[2022-05-24] MEDS: amLODIPine 5 MG (NORVASC) TAB PO SCH (08:47)
[2022-05-24] MEDS: METOCLOPRAMIDE INJ 10 MG/2 ML (REGLAN) IVP PRN (08:54)
[2022-05-24] MEDS ORDERED: MTP100TCR PO (09:40)
[2022-05-24] MEDS ORDERED: DOXA4TAB2 PO (09:40)
[2022-05-24] MEDS ORDERED: AMLO-250 PO (09:40)
[2022-05-24] MEDS ORDERED: CLN.1T PO (11:33)
[2022-05-24] MEDS ORDERED: ONDA4TAB11 PO (11:33)
[2022-05-24] MEDS ORDERED: METO-310 PO (11:33)
--- NOTE | 2022-05-24 11:34 | Discharge Summary ---
Discharge Summary Hospital Course Was the Problem List Reviewed?: Yes Problems/Dx: (1) Hypertensive urgency (2) Closed head injury Hospital Course Date of Admission: May 21, 2022 at 14:41 Admission Diagnosis : Family Physician/Provider: Kayode Mittal - [facility] Date of Discharge: 05/24/22 Discharge Diagnosis: [ ] Hospital Course: Hospital Course: Pablo Casanova is a 57 yo M w/ hx of HTN, COLEMAN on cpap, and CKDIII, and a recent head injury 6 weeks ago who presented with WHALEN, nausea, and a sbp in the 180s. He did not have vision changes or hearing changes. He was admitted for malignant hypertension with signs of organ damage. His troponin was elevated at .108 and trended to .080, and he had an elevated creatinine at 2.2. In ED, he was started on a nitroprusside drip and hydralazine for sbp >180. His sbp lowered to less than 180, and on 05/22 his bp goal was 160/110. On 05/22 he had continued nausea and vomitted, and continued to have a WHALEN, for which he was given morphine. He was also transitioned to po meds, and was given amlodipine, doxazosin, metoprolol succinate, and taken off of the nitro drip. His sbp sta bilized in the 140-150s range at this time with a few spikes in the 170s. Despite low blood pressures he has continued to have WHALEN w/ photophobia and associated nausea. This is presumably due to a head injury to the back of his head that he sustained 6 weeks ago, and which he said has caused him to have more frequent headaches since that time. A head CT was negative for acute proces ses at admit. During his stay he had a renal artery u/s which was unable to perform doppler due to body habitus, and an abdominal ultrasound which showed hepatomegly with hepatic steatosis. An echocardiogram performed on the last day of his stay showed an EF of 65-70% and grade 3 diastolic dysfunction. YANNI MCKEON Labs and Pending Lab Test: Laboratory Tests 05/24/22 05:14: White Blood Count 5.1, Red Blood Count 4.04L, Hemoglobin 12.0L, Hematocrit 35L, Mean Corpuscular Volume 87, Mean Corpuscular Hemoglobin 30, Mean Corpuscular Hemoglobin Concent 34, Red Cell Distribution Width 13.1, Platelet Count 102L, Mean Platelet Volume 11.3, Immature Granulocyte % (Auto) 2, Neutrophils (%) (Auto) 37L, Lymphocytes (%) (Auto) 40, Monocytes (%) (Auto) 21H, Eosinophils (%) (Auto) 0, Basophils (%) (Auto) 0, Neutrophils # (Auto) 1.9, Lymphocytes # (Auto) 2.0, Monocytes # (Auto) 1.0, Eosinophils # (Auto) 0.0, Basophils # (Auto) 0.0, Immature Granulocyte # (Auto) 0.1, Percent Immature Platelet Fraction 4.5, Sodium Level 140, Potassium Level 3.6, Chloride Level 109H, Carbon Dioxide Level 20L, Anion Gap 11, Blood Urea Nitrogen 29H, Creatinine 2.10H, Estimat Glomerular Filtration Rate 36, BUN/Creatinine Ratio 14, Glucose Level 97, Calcium Level 8.8, Corrected Calcium 9.2, Magnesium Level 2.1, Total Bilirubin 1.5H, Aspartate Amino Transf (AST/SGOT) 30, Alanine Aminotransferase (ALT/SGPT) 34, Alkaline Phosphatase 56, Total Protein 6.3L, Albumin 3.5 Microbiology 05/21/22 MRSA Screen - Final, Complete MRSA not isolated Home Meds Active Clonidine HCl 0.1 Mg Tablet 0.1 Mg PO Q6H PRN Take 1 pill every 6 hours prn blood pressure greater than 160 Reglan (Metoclopramide HCl) 10 Mg Tablet 10 Mg PO Q6H PRN Ondansetron Odt (Ondansetron) 4 Mg Tab.rapdis 4 Mg PO Q6H PRN Amlodipine Besylate 5 Mg Tablet 10 Mg PO DAILY Metoprolol Succinate 100 Mg Tab.er.24h 100 Mg PO BID Doxazosin Mesylate 4 Mg Tablet 4 Mg PO Q8HR Reported Losartan Potassium 100 Mg Tablet 100 Mg PO DAILY Vitamin D2 (Ergocalciferol (Vitamin D2)) 1,250 Mcg (60666 Unit) Capsule 1,250 Mcg PO WEEK takes on sundays Carvedilol 25 Mg Tablet 25 Mg PO BID Allopurinol 100 Mg Tablet 100 Mg PO BID Assessment/Pt Instructions PCP 1 week Discharge Planning: <30 minutes discharge planning Discharge Instructions Discharge Diet: No Restrictions Activity as Tolerated: Yes Discharge Physical Examination Vital Signs Vital Signs Date Time Temp Pulse Resp B/P (MAP) Pulse Ox O2 Delivery O2 Flow Rate FiO2 3/22/23 09:00 97 Room Air 05/24/22 08:56 36.8 05/24/22 07:00 65 05/24/22 04:50 22 149/90 (109) 05/23/22 00:25 98 General Appearance: No Apparent Distress, WD/WN, Chronically ill Allergies: Coded Allergies: No Known Drug Allergies (Unverified , 03/04/17) Discharge Summary Date of Admission May 21, 2022 at 14:41 Date of Discharge Discharge Date: May 24, 2022 Admission Diagnosis RANJEET LOERA May 24, 2022 11:34
--- NOTE | 2022-05-24 15:11 | Progress Note ---
YANNI MCKEON 05/24/22 1511: Progress Note Hospital Course: Pablo Casanova is a 57 yo M w/ hx of HTN, COLEMAN on cpap, and CKDIII, and a recent head injury 6 weeks ago who presented with WHALEN, nausea, and a sbp in the 180s. He did not have vision changes or hearing changes. He was admitted for malignant hypertension with signs of organ damage. His troponin was elevated at .108 and trended to .080, and he had an elevated creatinine at 2.2. In ED, he was started on a nitroprusside drip and hydralazine for sbp >180. His sbp lowered to less than 180, and on 05/22 his bp goal was 160/110. On 05/22 he had continued nausea and vomitted, and continued to have a WHALEN, for which he was given morphine. He was also transitioned to po meds, and was given amlodipine, doxazosin, metoprolol succinate, and taken off of the nitro drip. His sbp stabilized in the 140-150s range at this time with a few spikes in the 170s. Despite low blood pressures he has continued to have WHALEN w/ photophobia and associated nausea. This is presumably due to a head injury to the back of his head that he sustained 6 weeks ago, and which he said has caused him to have more frequent headaches since that time. A head CT was negative for acute processes at admit. During his stay he had a renal artery u/s which was unable to perform doppler due to body habitus, and an abdominal ultrasound which showed hepatomegly with hepatic steatosis. An echocardiogram performed on the last day of his stay showed an EF of 65-70% and grade 3 diastolic dysfunction. RANJEET LOERA DO 05/25/22 0506: Supervisory-Addendum Brief Verification & Attestation Participated in pt care: history, MDM, physical Personally performed: exam, history, MDM, supervision of care Care discussed with: Medical Student Procedures: n/a Results interpretation: Verified all documentation Verification and Attestation of Medical Student E/M Service A medical student performed and documented this service in my presence. I reviewed and verified all information documented by the medical student and made modifications to such information, when appropriate. I personally performed the physical exam and medical decision making. Julianne Sotomayor 23, 2023,05:06 YANNI MCKEON 22, 2023 15:11 RANJEET LOERA DO May 25, 2022 05:06
--- NOTE | 2022-05-24 15:15 | Progress Note - Cardiology ---
Cardiology SOAP Progress Note Subjective: Gen weakness and malaise have improved No shortness of breath at rest No focal weakness No n/v/d No cp No palp or syncope Wishes to go home Objective: I&O/Vital Signs 05/24/22 05/24/22 05/24/22 05/24/22 04:50 07:00 08:56 09:00 Temp 36.8 36.8 Pulse 77 65 Resp 22 B/P (MAP) 149/90 (109) Pulse Ox 95 97 O2 Delivery NIV CPAP Room Air 05/24/22 12:00 Temp 36.8 B/P (MAP) 145/69 (94) O2 Delivery Room Air 05/24/22 00:00 Intake Total 480 ml Output Total 1450 ml Balance -970 ml Weight (Pounds): 343 Weight (Calculated Kilograms): 155.007201 Constitutional: AAO x 3, well-developed, well-nourished, other (obese) Respiratory: No accessory muscle use; chest expansion is symmetric, chest is bilaterally symmetric, other (fair to good, bilateral air entry) Cardiovascular: regular rate-rhythm, S1 and S2, systolic murmur (soft ARIAN at card base) Gastrointestional: No tender; soft; No guarding, No rebound; audible bowel sounds Extremities: No clubbing, No cyanosis, No significant edema Neurologic/Psychiatric: oriented x 3, other (moves all limbs equally) Skin: No rash on exposed areas, No ulcerations on exposed areas Results/Procedures: Labs Laboratory Tests 05/24/22 05:14: White Blood Count 5.1, Red Blood Count 4.04L, Hemoglobin 12.0L, Hematocrit 35L, Mean Corpuscular Volume 87, Mean Corpuscular Hemoglobin 30, Mean Corpuscular Hemoglobin Concent 34, Red Cell Distribution Width 13.1, Platelet Count 102L, M keiry Platelet Volume 11.3, Immature Granulocyte % (Auto) 2, Neutrophils (%) (Auto) 37L, Lymphocytes (%) (Auto) 40, Monocytes (%) (Auto) 21H, Eosinophils (%) (Auto) 0, Basophils (%) (Auto) 0, Neutrophils # (Auto) 1.9, Lymphocytes # (Auto) 2.0, Monocytes # (Auto) 1.0, Eosinophils # (Auto) 0.0, Basophils # (Auto) 0.0, Immature Granulocyte # (Auto) 0.1, Percent Immature Platelet Fraction 4.5, Sodium Level 140, Potassium Level 3.6, Chloride Level 109H, Carbon Dioxide Level 20L, Anion Gap 11, Blood Urea Nitrogen 29H, Creatinine 2.10H, Estimat Glomerular Filtration Rate 36, BUN/Creatinine Ratio 14, Glucose Level 97, Calcium Level 8.8, Corrected Calcium 9.2, Magnesium Level 2.1, Total Bilirubin 1.5H, Aspartate Amino Transf (AST/SGOT) 30, Alanine Aminotransferase (ALT/SGPT) 34, Alkaline Phosphatase 56, Total Protein 6.3L, Albumin 3.5 Microbiology 05/21/22 MRSA Screen - Final, Complete MRSA not isolated Laboratory Tests 05/23/22 04:33 05/24/22 05:14 A/P: Assessment: Malignant hypertension - requiring multi-drug regimen - Echo on 05/24/22: severe conc LVH, LVEF 6-70%, grade 3 diastolic dysfunction, mild biatrial enlargement Type 2 PA due to malignant hypertension DARLIN - due to malignant hypertension on CKD 2-3 - renal function slightly improved today (05/24/22) COLEMAN - treated with CPAP Elevated BMI of approx 53 Thrombocytopenia of undetermined etiology - Medical services managing Nausea - undetermined etiology - medical services managing Plan: * Continue oral amlodipine, metoprolol succinate, and doxazosin * DARLIN d/t malignant HTN * - Cr is slightly improved today - monitor- Med svce managing DARLIN and CKD * Monitor labs * Mild thrombocytopenia of undetermined etiology * we advise f/u with PCP as out pt MADAY for f/u lab and management * Nausea of undetermined etiology - medical services managing * Ok to discharge home from cardiac stand point RICK TORRES MD FACP [facility] May 24, 2022 15:15
[2022-05-25] MEDS ORDERED: SCOPOLAMINE PATCH REMOVAL TP NR (17:59)
== END 2022-05-24 12:35 | disposition home or self-care (01) | DRG 281 ==
LOC: EDUNIT# 09:16 → ER 09:18 → ICU 14:41
PROVIDERS: ADMIT Internal Medicine; ATTEND Internal Medicine
DX: I16.0 Hypertensive urgency (principal); I21.A1 Myocardial infarction type 2; N17.9 Acute kidney failure, unspecified; Z68.43 Body mass index [BMI] 50.0-59.9, adult; I12.9 Hypertensive chronic kidney disease with stage 1 through stage 4 chronic kidney disease, or unspecified chronic kidney disease; N18.30 Chronic kidney disease, stage 3 unspecified; G47.33 Obstructive sleep apnea (adult) (pediatric); F41.9 Anxiety disorder, unspecified; S09.90XS Unspecified injury of head, sequela; D69.6 Thrombocytopenia, unspecified; H53.149 Visual discomfort, unspecified; R11.0 Nausea; R51.9 Headache, unspecified; E66.9 Obesity, unspecified; K76.0 Fatty (change of) liver, not elsewhere classified; M10.9 Gout, unspecified; M19.91 Primary osteoarthritis, unspecified site; H54.7 Unspecified visual loss; Z79.899 Other long term (current) drug therapy; W50.0XXS Accidental hit or strike by another person, sequela
CPT/HCPCS: 36415; 70450; 71045; 76705; 76770; 80048; 80053; 81000; 83735; 84100; 84484; 85007; 85025; 85027; 87081; 93005; 93041; 93306; 93975

== ENCOUNTER 2022-05-29 15:27 | Emergency (ER) | payer OTHER ==
[~2022-05-29] VITALS: Ht 187 cm; Wt 901.6 kg
[~2022-05-29 15:27] MED LIST changes: +AMLO-250 PO; +CLN.1T PO; +DOXA4TAB2 PO; +METO-310 PO; +MTP100TCR PO; +ONDA4TAB11 PO
--- NOTE | 2022-05-29 16:35 | ED General ---
General Chief Complaint: Neurological Problems Stated Complaint: HALLUCINATIONS Nursing Triage Note: PT PRESENTS TO ED VIA POV ACCOMPANIED BY WITH COMPLAINTS OF HALLUCINATIONS SINCE 05/26 AFTER STARTING NEW BP MEDS A FEW DAYS BEFORE. PT WAS SWITCHED TO A NEW MEDICATION BUT CONTINUES TO HAVE HALLUCINATIONS. PT ALSO REPORTS CONTINUED HTN. Source of Information: Patient, Family () Exam Limitations: No Limitations History of Present Illness Date Seen by Provider: May 29, 2022 Time Seen by Provider: 16:08 Initial Comments 57-year-old male presents to the emergency department today for visual hallucinations. He was recently admitted to the hospital from May 21 for hypertension. About 6 weeks prior to this he sustained a closed head injury and had been having some headaches and photophobia which was thought to be unrelated at the time. His blood pressures are quite elevated on evaluation in the emergency department he was admitted for that reason. CT scan at that time was negative. He was started on several new medications for blood pressure to include amlodipine, metoprolol and doxazosin. He was also given clonidine to take as needed. His states that he recently stopped taking doxazosin because they thought it was causing his hallucinations. The day he was going to be discharged on 05/24 he told his he thought he saw something on the wall. He described it as a painting of some sort and his really think much of it at that time. Since he got home he is continue to have hallucinations. He tells me for example that if that he was sitting in his chair and saw a dog foot down from the ceiling and sit on his lap. When he went to pet it it disappeared and he realized that there was not a dog. He also saw a large kaltag in the living room between he and his that ultimately disappeared as well. He is also hearing some whooshing noises as though a hose exploded or an air compressor is running. All episodes seem to be intermittent and there is no obvious aggravating or alleviating factors. No fevers or chills. The headaches that he was having in the hospital have improved he is no longer having nausea. No subsequent head injuries. Notably in discussion with the the patient has not been sleeping well, frequently waking up at 12 or 1:00 in the morning. He does sleep a significant amount during the day, approximately 4 hours or so. He did have an echocardiogram during admission that showed an EF of 60-70%. Attempted renal artery ultrasound during admission was inconclusive as the patient's body habitus made it difficult. All other systems reviewed and negative except documented per HPI. Voice recognition software was used to help create this chart Allergies and Home Medications Allergies Coded Allergies: No Known Drug Allergies (Unverified , 03/04/17) Patient Home Medication List Home Medication List Reviewed: Yes Allopurinol (Allopurinol) 100 Mg Tablet, 100 MG PO BID, (Reported) Entered as Reported by: CHAN SMITH on 03/13/19 1239 Amlodipine Besylate (Amlodipine Besylate) 5 Mg Tablet, 10 MG PO DAILY Prescribed by: SHARDA CARVAJAL on 05/24/22 0940 Clonidine HCl (Clonidine HCl) 0.1 Mg Tablet, 0.1 MG PO Q6H PRN for hypertension Prescribed by: RANJEET LOERA on 05/24/22 1133 Doxazosin Mesylate (Doxazosin Mesylate) 4 Mg Tablet, 4 MG PO Q8HR Prescribed by: SHARDA CARVAJAL on 05/24/22 0940 Ergocalciferol (Vitamin D2) (Vitamin D2) 1,250 Mcg (11452 Unit) Capsule, 1,250 MCG PO WEEK, (Reported) Entered as Reported by: JAMEY MEDINA on 05/17/22 0913 Metoclopramide HCl (Reglan) 10 Mg Tablet, 10 MG PO Q6H PRN for NAUSEA-3RD LINE Prescribed by: RANJEET LOERA on 05/24/22 1133 Metoprolol Succinate (Metoprolol Succinate) 100 Mg Tab.er.24h, 100 MG PO BID Prescribed by: SHARDA CARVAJAL on 05/24/22 0940 Ondansetron (Ondansetron Odt) 4 Mg Tab.rapdis, 4 MG PO Q6H PRN for NAUSEA/VOMITING-1ST LINE Prescribed by: RANJEET LOERA on 05/24/22 1133 Discontinued Medications Carvedilol (Carvedilol) 25 Mg Tablet, 25 MG PO BID, (Reported) Entered as Reported by: CHAN SMITH on 03/13/19 1239 Losartan Potassium (Losartan Potassium) 100 Mg Tablet, 100 MG PO DAILY, (Reported) Entered as Reported by: MCKENZIE BRANDON on 05/21/22 6625 Review of Systems Review of Systems Constitutional: see HPI Past Kwdulub-Syvoug-Vthapb Hx Patient Social History Tobacco Use?: No Substance use?: No Alcohol Use?: No Pt feels they are or have been: No Immunizations Up To Date First/Initial COVID19 Vaccinat: YES Second COVID19 Vaccination Aki: YES Third COVID19 Vaccination Date: Jan 2021 Seasonal Allergies Seasonal Allergies: Yes Past Medical History Surgery/Hospitalization HX: L KNEE, HTN, GOUT Surgeries: Yes (left knee scope) Respiratory: Yes Sleep Apnea Currently Using CPAP: Yes Cardiac: Yes Hypertension Neurological: No Genitourinary: No Gastrointestinal: No Musculoskeletal: Yes (left knee) Arthritis Endocrine: No HEENT: No Cancer: No Psychosocial: No Integumentary: No Blood Disorders: No Family Medical History Reviewed Nursing Family Hx Physical Exam Vital Signs Vital Signs - First Documented 05/29/22 15:36 Temp 35.5 Pulse 69 Resp 18 B/P (MAP) 157/97 (117) Pulse Ox 97 Capillary Refill : Less Than 3 Seconds Height, Weight, BMI Height: 6'2.00" Weight: 343lbs. oz. 155.584680sy; 257.00 BMI Method:Stated General Appearance: No Apparent Distress, WD/WN Eyes: Bilateral Eye Normal Inspection, Bilateral Eye PERRL, Bilateral Eye EOMI HEENT: PERRL/EOMI, TMs Normal, Normal ENT Inspection, Pharynx Normal Neck: Full Range of Motion, Normal Inspection, Non Tender, Supple Respiratory: Chest Non Tender, Lungs Clear, Normal Breath Sounds, No Accessory Muscle Use, No Respiratory Distress Cardiovascular: Regular Rate, Rhythm, No Edema, No Gallop, No JVD, No Murmur, Normal Peripheral Pulses Gastrointestinal: Normal Bowel Sounds, No Organomegaly, Non Tender, Soft Extremity: Normal Capillary Refill, Normal Inspection, Normal Range of Motion, Non Tender, No Calf Tenderness Neurologic/Psychiatric: Alert, Oriented x3, No Motor/Sensory Deficits, Normal Mood/Affect, block mason II-XII Norm as Tested Skin: Normal Color, Warm/Dry Progress/Results/Core Measures Suspected Sepsis SIRS Temperature: Pulse: 69 Respiratory Rate: 18 Laboratory Tests 05/29/22 16:40: White Blood Count 5.6 Blood Pressure 157 /97 Mean: 117 Laboratory Tests 05/29/22 16:40: Creatinine 1.79H, Platelet Count 110L, Total Bilirubin 1.2H Results/Orders Lab Results Laboratory Tests Test 05/29/22 16:40 05/29/22 16:50 Range/Units White Blood Count 5.6 4.3-11.0 10^3/uL Red Blood Count 4.41 4.30-5.52 10^6/uL Hemoglobin 13.2 L 13.3-17.7 g/dL Hematocrit 38 L 40-54 % Mean Corpuscular Volume 86 80-99 fL Mean Corpuscular Hemoglobin 30 25-34 pg Mean Corpuscular Hemoglobin Concent 35 32-36 g/dL Red Cell Distribution Width 12.9 10.0-14.5 % Platelet Count 110 L 130-400 10^3/uL Mean Platelet Volume 11.7 9.0-12.2 fL Immature Granulocyte % (Auto) 4 % Neutrophils (%) (Auto) 38 L 42-75 % Lymphocytes (%) (Auto) 38 12-44 % Monocytes (%) (Auto) 19 H 0-12 % Eosinophils (%) (Auto) 1 0-10 % Basophils (%) (Auto) 0 0-10 % Neutrophils # (Auto) 2.1 1.8-7.8 10^3/uL Lymphocytes # (Auto) 2.1 1.0-4.0 10^3/uL Monocytes # (Auto) 1.1 H 0.0-1.0 10^3/uL Eosinophils # (Auto) 0.0 0.0-0.3 10^3/uL Basophils # (Auto) 0.0 0.0-0.1 10^3/uL Immature Granulocyte # (Auto) 0.2 H 0.0-0.1 10^3/uL Neutrophils % (Manual) 41 % Lymphocytes % (Manual) 33 % Monocytes % (Manual) 12 % Eosinophils % (Manual) 1 % Band Neutrophils 3 % Reactive Lymphocytes 10 % Clumped Platelets SLIGHT Percent Immature Platelet Fraction 4.6 0.0-7.6 % Sodium Level 141 135-145 MMOL/L Potassium Level 4.5 3.6-5.0 MMOL/L Chloride Level 110 H 98-107 MMOL/L Carbon Dioxide Level 20 L 21-32 MMOL/L Anion Gap 11 5-14 MMOL/L Blood Urea Nitrogen 28 H 7-18 MG/DL Creatinine 1.79 H 0.60-1.30 MG/DL Estimat Glomerular Filtration Rate 43 BUN/Creatinine Ratio 16 Glucose Level 114 H 70-105 MG/DL Calcium Level 9.7 8.5-10.1 MG/DL Corrected Calcium 9.6 8.5-10.1 MG/DL Magnesium Level 2.1 1.6-2.4 MG/DL Total Bilirubin 1.2 H 0.1-1.0 MG/DL Aspartate Amino Transf (AST/SGOT) 26 5-34 U/L Alanine Aminotransferase (ALT/SGPT) 43 0-55 U/L Alkaline Phosphatase 68 40-136 U/L Ammonia 35 H 11-32 UMOL/L Total Protein 7.4 6.4-8.2 GM/DL Albumin 4.1 3.2-4.5 GM/DL Thyroid Stimulating Hormone (TSH) 1.43 0.35-4.94 UIU/ML Urine Color YELLOW Urine Clarity CLEAR Urine pH 6.0 5-9 Urine Specific Jackson 1.025 H 1.016-1.022 Urine Protein 3+ H NEGATIVE Urine Glucose (UA) NEGATIVE NEGATIVE Urine Ketones NEGATIVE NEGATIVE Urine Nitrite NEGATIVE NEGATIVE Urine Bilirubin NEGATIVE NEGATIVE Urine Urobilinogen 0.2 < = 1.0 MG/DL Urine Leukocyte Esterase NEGATIVE NEGATIVE Urine RBC (Auto) NEGATIVE NEGATIVE Urine RBC NONE /HPF Urine WBC RARE /HPF Urine Squamous Epithelial Cells RARE /HPF Urine Crystals NONE /LPF Urine Bacteria NEGATIVE /HPF Urine Casts PRESENT /LPF Urine Hyaline Casts RARE /LPF Urine Mucus NEGATIVE /LPF Urine Culture Indicated NO My Orders Orders - YELITZA YEPEZ DO Magnesium (05/29/22 16:26) Thyroid Stimulating Hormone (05/29/22 16:26) Ua Culture If Indicated (05/29/22 16:26) Ct Head Wo (05/29/22 16:26) Ammonia (05/29/22 16:26) Cbc With Automated Diff (05/29/22 16:26) Comprehensive Metabolic Panel (05/29/22 16:26) Manual Differential (05/29/22 16:40) Morphine Injection (Morphine Injection (05/29/22 17:28) Vital Signs/I&O 05/29/22 05/29/22 15:36 17:58 Temp 35.5 Pulse 69 73 Resp 18 20 B/P (MAP) 157/97 (117) 151/99 Pulse Ox 97 96 Capillary Refill : Less Than 3 Seconds Blood Pressure Mean: 117 Departure Communication (Admissions) Patient is hemodynamically stable no active visual hallucinations during my examination. He is aware that these are hallucinations when they happen and is alert the entire time. He is not aggressive at all. Initial differential diagnosis includes encephalopathy, hypo-, hypernatremia, hypercalcemia, medication reaction, infection. Work-up reveals no evidence for infection and he is afebrile and feels otherwise well. This could be related to night and day mixup given he was recently in the ICU is having trouble sleeping at home, waking up frequently at 12 or 1:00 in the morning and not being able to go back to sleep. Could be simply from lack of sleep as well. Could be medication induced. His chemistry is unremarkable, no evidence for electrolyte abnormality causing symptoms. I did do a pneumonia and so is slightly elevated he has no liver disease have a reason to think that this is the cause of his symptoms no indication for infectious source. Had a long conversation with him about possible admission. states that she was mostly worried about his brain. CT scanning was negative he is afebrile and has no evidence of meningitis or encephalitis otherwise. She states if it is not his brain then she is confident it is likely a medication reaction as it was new with NEW medications. She does not wish to hospitalize him at this time as she thinks it is related to night and a mixup that may make it worse. I think is probably reasonable for him to be discharged home. He does have reliable follow-up and they state they will call Dr. Avila's office in the morning. Impression Primary Impression: Visual hallucination Disposition: 01 HOME, SELF-CARE Condition: Stable Departure-Patient Inst. Referrals: [facility] [place] (PCP/Family) Primary Care Physician Add. Discharge Instructions: You were seen in the emergency department today for visual hallucinations. As discussed your medical work-up here is unremarkable. It is unclear exactly what this is from. I offered admission however given your reliable follow-up and discussion I think it is likely okay for him to be discharged home and he will care at this time. If his symptoms change in any way concerning to you please return to the emergency department immediately. Follow-up with Dr. Avila tomorrow as scheduled. All discharge instructions reviewed with patient and/or family. Voiced understanding. YELITZA YEPEZ DO May 29, 2022 16:35
[2022-05-29 16:48] LABS: MEAN CORPUSCULAR VOLUME 86 fL (80-99); MONOCYTES % (AUTO) 19 % (0-12)
[2022-05-29 16:50] LABS: BASOPHILS % (AUTO) 0 % (0-10); EOSINOPHILS % (AUTO) 1 % (0-10); HEMATOCRIT 38 % (40-54); HEMOGLOBIN 13.2 g/dL (13.3-17.7); LYMPHOCYTES # (AUTO) 2.1 10^3/uL (1.0-4.0); LYMPHOCYTES % (AUTO) 38 % (12-44); MEAN CORPUSCULAR HEMOGLOBIN 30 pg (25-34); MEAN CORPUSCULAR HGB CONC 35 g/dL (32-36); MEAN PLATELET VOLUME 11.7 fL (9.0-12.2); MONOCYTES # (AUTO) 1.1 10^3/uL (0.0-1.0); NEUTROPHILS # (AUTO) 2.1 10^3/uL (1.8-7.8); NEUTROPHILS % (AUTO) 38 % (42-75); PLATELET COUNT 110 10^3/uL (130-400); WHITE BLOOD COUNT 5.6 10^3/uL (4.3-11.0)
[2022-05-29 16:58] LABS: BILIRUBIN,URINE NEGATIVE (NEGATIVE); CLARITY,URINE CLEAR; COLOR,URINE YELLOW; GLUCOSE, URINE (UA) NEGATIVE (NEGATIVE); KETONES,URINE NEGATIVE (NEGATIVE); LEUKOCYTE ESTERASE ,URINE NEGATIVE (NEGATIVE); NITRITE,URINE NEGATIVE (NEGATIVE); PROTEIN,URINE 3+ (NEGATIVE)
[2022-05-29 17:00] LABS: ALBUMIN 4.1 GM/DL (3.2-4.5)
[2022-05-29 17:01] LABS: POTASSIUM 4.5 MMOL/L (3.6-5.0)
[2022-05-29 17:02] LABS: CALCIUM 9.7 MG/DL (8.5-10.1)
[2022-05-29 17:03] LABS: TOTAL PROTEIN 7.4 GM/DL (6.4-8.2)
[2022-05-29 17:05] LABS: BILIRUBIN,TOTAL 1.2 MG/DL (0.1-1.0)
[2022-05-29 17:06] LABS: BACTERIA,URINE NEGATIVE /HPF; HYALINE CASTS, URINE RARE /LPF; SQUAMOUS EPITHELIAL CELL,UR RARE /HPF; WBC,URINE RARE /HPF
[2022-05-29 17:07] LABS: CREATININE SERUM 1.79 MG/DL (0.60-1.30)
[2022-05-29 17:10] LABS: MAGNESIUM 2.1 MG/DL (1.6-2.4)
[2022-05-29 17:24] LABS: EOSINOPHILS % (MANUAL) 1 %; LYMPHOCYTES % (MANUAL) 33 %; MONOCYTES % (MANUAL) 12 %
[2022-05-29 17:25] LABS: BAND NEUTROPHILS 3 %; NEUTROPHILS % (MANUAL) 41 %; PLATELET CLUMPS SLIGHT; REACTIVE LYMPHOCYTES 10 %
[2022-05-29] MEDS ORDERED: morphine INJ 10 MG/ML 1ML (SYR OR VIAL) IVP STA (17:28)
--- NOTE | 2022-05-29 17:37 | Diagnostic Imaging Report ---
PROCEDURE: CT head without contrast. TECHNIQUE: Multiple contiguous axial images were obtained through the brain without the use of intravenous contrast. Auto Exposure Controls were utilized during the CT exam to meet ALARA standards for radiation dose reduction. INDICATION: Altered mental status and hallucinations. COMPARISON: 05/21/2022. FINDINGS: There are no CT findings of an acute intracranial abnormality. There are no findings of intracranial hemorrhage. There is no intracranial mass effect or shift. There is no hydrocephalus. There is no abnormal extra-axial collection. The basilar cisterns are patent. Some patchy regions of low attenuation in the deep white matter are again noted and most compatible with microvascular changes. There is no territorial loss of lock-white differentiation or vasogenic edema. The mastoids are clear. There is a mucous retention cyst in the right maxillary sinus. The orbital contents unremarkable. There is no calvarial abnormality. IMPRESSION: 1. No CT evidence of an acute intracranial abnormality. 2. Background microvascular changes are present within the deep white matter. Dictated by: Dictated on workstation # [id number]
[2022-05-29 17:58] VITALS: BP 151/99
== END 2022-05-29 17:58 | disposition home or self-care (01) ==
LOC: EDUNIT# 15:27 → ER 15:29
DX: R44.1 Visual hallucinations (principal)
CPT/HCPCS: 36415; 70450; 80053; 81000; 82140; 83735; 84443; 85007; 85027